=== PATIENT | male | born 1960 | race Caucasian/White ===

== ENCOUNTER 2021-07-30 20:24 | Inpatient (IN) | payer SELFPAY ==
[2021-07-30] VITALS (11 sets, daily range): BP systolic 146–200; BP diastolic 80–124; PULSE 90–118; RESP 16–37; O2SAT 94–97; BMI 24.5
--- NOTE | 2021-07-30 20:27 | ED.SEIZURE ---
HPI - Seizure General Chief Complaint: Seizure Stated Complaint: Seizure Time Seen by Provider: 07/30/21 20:27 History of Present Illness HPI Narrative: 60M daily smoker with history of extensive alcohol abuse presents by EMS for evaluation of a partially witnessed seizure just prior to arrival. The patient does have a history of seizures but does not take any medications. He is a poor historian and is unclear what prior seizures were thought to be related to though he does admit to prior episodes of alcohol withdrawal and questions whether not they may be related. He denies any recent head injuries, neck pain or fever. He has had no chest pain or shortness of breath. He was in his car waiting for his to get groceries when a passerby saw him shaking. The duration is unclear but by the time EMS arrived he had stopped and was postictal, by his arrival to the department he was alert and oriented. He does state that over the past few days he has decreased his rate of drinking because he can not afford to keep up with it. His last drink was this morning and he states that he would have absolutely had more drinks by this part of the day if he could get his hands on some alcohol. He feels a bit shaky and tremulous. He denies any headache or blurred vision. He has no chest pain or shortness of breath. He denies any abdominal pain, nausea or vomiting. He is minimally sweaty. He denies any auditory, visual or tactile hallucinations. Related Data Allergies Allergy/AdvReac Type Severity Reaction Status Date / Time No Known Drug Allergies Allergy Verified 07/30/21 21:22 Review of Systems Review of Systems Narrative: GENERAL: See HPI HEENT: Denies sinus pain, ear pain, sore throat, difficulty swallowing, dizziness. RESPIRATORY: Denies dyspnea, cough, wheezing, hemoptysis, sputum. CARDIOVASCULAR: Denies chest pain, palpitations, orthopnea, edema, GASTROINTESTINAL: Denies nausea, vomiting, abdominal pain, diarrhea, constipation, melena. : Denies dysuria, frequency, incontinence, hematuria, urinary retention. MUSCULOSKELETAL: denies weakness, joint pain, or bony pain SKIN: Denies rash, skin lesions, or other NEUROLOGIC: See HPI PSYCHIATRIC: No concerning psychosocial issues. 12 point review of systems is negative except for those stated above Patient History Medical History (Updated 07/31/21 @ 00:06 by Latoya Samuel MD) Alcohol withdrawal seizure Hypomagnesemia Surgical History (Updated 07/31/21 @ 00:06 by Latoya Samuel MD) History of inguinal hernia repair Family History (Updated 07/31/21 @ 00:09 by Latoya Samuel MD) Father Congestive heart failure Mother Congestive heart failure Social History Smoking Status: Current every day smoker Exam Narrative Exam Narrative: GENERAL: [60 year old patient appears stated age. Well-developed patient, in mild distress. Bit agitated and tremulous HEAD: Atraumatic. Normocephalic. EYES: Pupils equal round and reactive. Extraocular motions intact. No scleral icterus. No injection or drainage. ENT: Nose without bleeding, purulent drainage. Throat without erythema, tonsillar hypertrophy or exudate. Airway patent. NECK: Trachea midline. Non tender CARDIOVASCULAR: Tachycardic but regular rhythm without murmurs, gallops, or rubs. RESPIRATORY: Clear to auscultation. Breath sounds equal bilaterally. No wheezes, rales, or rhonchi. GASTROINTESTINAL: Abdomen soft, non-tender, nondistended. EXTREMITIES: No edema or joint tenderness. BACK: Nontender without deformity or crepitance. No flank tenderness. NEURO: AOx3. Agitated, tremulous SKIN: No rash or erythema of visible areas Initial Vital Signs Initial Vital Signs: Vital Signs Pulse Rate 96 H 07/30/21 20:35 Respiratory Rate 23 07/30/21 20:35 Pulse Oximetry 94 07/30/21 20:35 Course Orders Ordered: ED Orders 07/30/21 20:28 CT head/brain wo con Stat 07/30/21 20:29 CMP [Comprehensive Metabolic Panel] Stat Complete Blood Count AUTO DIFF Stat Ethanol (ETOH) Stat Magnesium Stat Prolactin Stat 07/30/21 21:16 COVID19 -Nasal RAPID/Pre-Proc Stat 07/30/21 21:37 Urinalysis Screen (Dip Only) Stat Urine Drug Screen, Rapid Stat Clonidine HCl (Clonidine 0.1 Mg Tablet) 0.1 mg PO Q4HR PRN PRN Reason: Alcohol Withdrawal Enoxaparin Sodium (Enoxaparin 40 Mg/0.4 Ml Syringe) 40 mg SUBCUT DAILY CHRISTOPHER Folic Acid (Folic Acid 1 Mg Tablet) 1 mg PO DAILY CHRISTOPHER Haloperidol (Haloperidol 5 Mg/Ml Vial) 5 mg IV Q1HR PRN PRN Reason: Hallucinations Sodium Chloride (Normal Saline 0.9%) 1,000 mls @ 150 mls/hr IV CONT CHRISTOPHER Last Admin: 07/30/21 21:18 Dose: 150 mls/hr Documented by: MERCEDES Dextrose/Sodium Chloride (Dextrose 5%-0.9% Ns) 1,000 mls @ 100 mls/hr IV CONT CHRISTOPHER Lorazepam (Lorazepam 1 Mg Tablet) 2 mg PO Q8HR CHRISTOPHER; Protocol Multivitamins (Multivitamin 1 Tablet) 1 tab PO DAILY CHRISTOPHER Naloxone HCl (Naloxone 0.4 Mg/Ml Vial) 0.2 mg IV Q2MIN PRN PRN Reason: Opiate Reversal Nicotine (Nicotine 14 Patch) 14 mg TOP DAILY CHRISTOPHER Thiamine HCl (Thiamine 100 Mg Tablet) 100 mg PO DAILY CHRISTOPHER Stop: 08/03/21 09:01 Discontinued Medications Clonidine HCl (Clonidine 0.1 Mg Tablet) 0.1 mg PO Q12H PRN PRN Reason: Anxiety Thiamine HCl 200 mg/ Sodium (Chloride) 102 mls @ 408 mls/hr IV NOW ONE Stop: 07/30/21 21:04 Last Infusion: 07/30/21 21:51 Dose: 0 mls/hr Documented by: Admin: 07/30/21 21:18 Dose: 408 mls/hr Documented by: MERCEDES Phenobarbital 260 mg/ Sodium (Chloride) 104 mls @ 200 mls/hr IV NOW ONE Stop: 07/30/21 22:01 Last Infusion: 07/30/21 22:42 Dose: 0 mls/hr Documented by: Admin: 07/30/21 22:08 Dose: 200 mls/hr Documented by: OTILIO Magnesium Sulfate (Magnesium Sulfate) 2 gm in 50 mls @ 25 mls/hr IV NOW ONE Stop: 07/30/21 23:40 Last Infusion: 07/31/21 00:07 Dose: 0 mls/hr Documented by: OTILIO Cosigned by: DEBRA Admin: 07/30/21 21:54 Dose: 25 mls/hr Documented by: OTILIO Cosigned by: RENEE Phenobarbital (Phenobarbital 65 Mg/Ml Vial) 260 mg IV NOW ONE Stop: 07/30/21 21:04 Last Admin: 07/30/21 21:18 Dose: 260 mg Documented by: MERCEDES Phenobarbital (Phenobarbital 65 Mg/Ml Vial) 130 mg IV NOW ONE Stop: 07/30/21 22:26 Thiamine HCl (Thiamine 100 Mg Tablet) 100 mg PO DAILY CHRISTOPHER Stop: 08/02/21 09:01 Vital Signs Vital signs: Vital Signs - 8 hr 07/30/21 20:35 07/30/21 20:37 07/30/21 20:55 Pulse Rate 96 H 94 H 97 H Respiratory Rate 23 16 19 Blood Pressure 173/106 H 160/124 H Pulse Oximetry 94 97 95 07/30/21 21:00 07/30/21 21:30 07/30/21 22:00 Pulse Rate 98 H 96 H 98 H Respiratory Rate 24 20 19 Blood Pressure 164/98 H 173/103 H Pulse Oximetry 95 95 95 07/30/21 22:12 07/30/21 22:30 07/30/21 22:31 Pulse Rate 118 H 93 H 93 H Respiratory Rate 37 H 23 23 Blood Pressure 200/111 H 158/86 H Pulse Oximetry 96 96 07/30/21 23:00 Pulse Rate 94 H Respiratory Rate 18 Blood Pressure 146/80 H Pulse Oximetry 95 MDM - Seizure Lab Data Result diagrams: 07/30/21 20:29 07/30/21 20:29 Labs: Lab Results 07/30/21 07/30/21 07/30/21 Range/Units 20:29 20:29 20:29 WBC 6.4 (4.5-11.0) X10^3/uL RBC 3.51 L (4.5-5.9) X10^6/uL Hgb 12.4 L (13.5-17.5) g/dL Hct 36.0 L (41-53) % MCV 102.7 H (80-100) fL MCH 35.4 H (26-34) PG MCHC 34.5 (30-36) % RDW 13.2 (11.6-14.8) % Plt Count 200 (150-400) X10^3/uL Neut % (Auto) 72.1 (50-75) % Lymph % (Auto) 13.0 L (25-40) % [place] % (Auto) 12.5 (3-14) % Eos % (Auto) 0.1 L (2-4) % Baso % (Auto) 2.3 H (0-2) % Neut # (Auto) 4600 (6978-7361) /uL Lymph # (Auto) 800 L (0228-6304) /uL [place] # (Auto) 800 (0-900) /uL Eos # (Auto) 0 (0-450) /uL Baso # (Auto) 100 (0-100) /uL Sodium 139 (137-145) mmol/L Potassium 3.7 (3.4-5.1) mmol/L Chloride 95 L (98-107) mmol/L Carbon Dioxide 25 (22-32) mmol/L BUN 8 L (9-20) mg/dL Creatinine 0.71 (0.66-1.25) mg/dL Estimated GFR > 60 (>60) mL/min BUN/Creatinine Ratio 11.3 (6-22) Glucose 157 H (70-100) mg/dL Calcium 9.1 (8.4-10.2) mg/dL Magnesium 1.2 L (1.6-2.3) mg/dL Total Bilirubin 1.2 (0.2-1.3) mg/dL AST 169 H (17-59) IU/L ALT 64 H (<50) IU/L Alkaline Phosphatase 88 (38-126) U/L Total Protein 8.2 (6.3-8.2) g/dL Albumin 4.8 (3.5-5.0) g/dL Globulin 3.4 (1.7-4.1) g/dL Albumin/Globulin Ratio 1.4 (1.0-2.8) Prolactin 38.6 H (3.7-17.9) ng/mL Urine Color Urine Appearance Urine pH (4.5-8.0) Ur Specific [place] (1.000-1.035) Urine Protein (Negative) Urine Glucose (UA) (Negative) g/dL Urine Ketones (NEGATIVE) Urine Occult Blood (Negative) Urine Nitrate (Negative) Urine Bilirubin (NEGATIVE) Urine Urobilinogen (0.2) E.U./dL Ur Leukocyte Esterase (NEGATIVE) U Opiates 300ng/mL cut (Negative) Ur Oxycodone Screen (Negative) Urine Methadone Screen (Negative) Ur Barbiturates Screen (Negative) U Tricyclic Antidepress (Negative) Ur Phencyclidine Scrn (Negative) Ur Amphetamines Screen (Negative) U Methamphetamines Scrn (Negative) Ur MDMA Scrn (Ecstasy) (Negative) U Benzodiazepines Scrn (Negative) Urine Cocaine Screen (Negative) U Marijuana (THC) Screen (Negative) Ethyl Alcohol < 10 ( - 10) mg/dL SARS-CoV-2 (PCR) (Negative) 07/30/21 07/30/21 07/30/21 Range/Units 21:16 21:37 21:37 WBC (4.5-11.0) X10^3/uL RBC (4.5-5.9) X10^6/uL Hgb (13.5-17.5) g/dL Hct (41-53) % MCV (80-100) fL MCH (26-34) PG MCHC (30-36) % RDW (11.6-14.8) % Plt Count (150-400) X10^3/uL Neut % (Auto) (50-75) % Lymph % (Auto) (25-40) % [place] % (Auto) (3-14) % Eos % (Auto) (2-4) % Baso % (Auto) (0-2) % Neut # (Auto) (3355-0312) /uL Lymph # (Auto) (8227-4797) /uL [place] # (Auto) (0-900) /uL Eos # (Auto) (0-450) /uL Baso # (Auto) (0-100) /uL Sodium (137-145) mmol/L Potassium (3.4-5.1) mmol/L Chloride (98-107) mmol/L Carbon Dioxide (22-32) mmol/L BUN (9-20) mg/dL Creatinine (0.66-1.25) mg/dL Estimated GFR (>60) mL/min BUN/Creatinine Ratio (6-22) Glucose (70-100) mg/dL Calcium (8.4-10.2) mg/dL Magnesium (1.6-2.3) mg/dL Total Bilirubin (0.2-1.3) mg/dL AST (17-59) IU/L ALT (<50) IU/L Alkaline Phosphatase (38-126) U/L Total Protein (6.3-8.2) g/dL Albumin (3.5-5.0) g/dL Globulin (1.7-4.1) g/dL Albumin/Globulin Ratio (1.0-2.8) Prolactin (3.7-17.9) ng/mL Urine Color Yellow Urine Appearance Clear Urine pH 7.5 (4.5-8.0) Ur Specific [place] 1.015 (1.000-1.035) Urine Protein 1+ H (Negative) Urine Glucose (UA) Negative (Negative) g/dL Urine Ketones 1+ H (NEGATIVE) Urine Occult Blood Trace-intact (Negative) Urine Nitrate Negative (Negative) Urine Bilirubin Negative (NEGATIVE) Urine Urobilinogen 0.2 (0.2) E.U./dL Ur Leukocyte Esterase Negative (NEGATIVE) U Opiates 300ng/mL cut Negative (Negative) Ur Oxycodone Screen Negative (Negative) Urine Methadone Screen Negative (Negative) Ur Barbiturates Screen Negative (Negative) U Tricyclic Antidepress Negative (Negative) Ur Phencyclidine Scrn Negative (Negative) Ur Amphetamines Screen Negative (Negative) U Methamphetamines Scrn Negative (Negative) Ur MDMA Scrn (Ecstasy) Negative (Negative) U Benzodiazepines Scrn Negative (Negative) Urine Cocaine Screen Negative (Negative) U Marijuana (THC) Screen Negative (Negative) Ethyl Alcohol ( - 10) mg/dL SARS-CoV-2 (PCR) Negative (Negative) Discharge Plan Departure Patient Disposition: Admitted As Inpatient Clinical Impression: Alcohol withdrawal seizure, Hypomagnesemia Admit Date/Time: 07/30/21 23:17 Admit Provider: Latoya Samuel
--- NOTE | 2021-07-30 20:28 | DI.CT.S_ITS ---
PROCEDURE: CT HEAD/BRAIN WO CON INDICATIONS: change in seizure TECHNIQUE: Noncontrast 4.5 mm thick angled axial sections acquired from the foramen magnum to the vertex, with coronal and sagittal reformats. For radiation dose reduction, the following was used: automated exposure control, adjustment of mA and/or kV according to patient size. COMPARISON: None. FINDINGS: Image quality: Excellent. CSF spaces: Basal cisterns are patent. No extra-axial fluid collections. The ventricles are symmetric in size and shape. Brain: No intracranial bleeds or masses. There is cerebral volume loss for age, with resultant ventricular and sulcal prominence. There are periventricular and deep white matter chronic small vessel ischemic changes. There is intracranial internal carotid artery atherosclerosis. Skull and face: Calvarium and visualized facial bones appear intact, without suspicious lesions. Sinuses: Visualized sinuses and mastoids are clear. IMPRESSION: No CT evidence of acute intracranial process. Dictated by: Marissa Pearson M.D. on 07/30/2021 at 21:10 Approved by: Marissa Pearson M.D. on 07/30/2021 at 21:11
[2021-07-30 20:44] LABS: Add Manual Diff / Slide Review NO; Basophils Absolute Auto 100 /uL (0-100); Basophils Percent Auto 2.3 % (0-2); Eosinophils Absolute Auto 0 /uL (0-450); Eosinophils Percent Auto 0.1 % (2-4); Hemoglobin 12.4 g/dL (13.5-17.5); Lymphocytes Absolute Auto 800 /uL (1100-4500); Mean Corpuscular HGB Conc 34.5 % (30-36); Mean Corpuscular Hemoglobin 35.4 PG (26-34); Mean Corpuscular Volume 102.7 fL (80-100); Monocytes Absolute Auto 800 /uL (0-900); Monocytes Percent Auto 12.5 % (3-14); Neutrophils Absolute Auto 4600 /uL (1500-7000); Neutrophils Percent Auto 72.1 % (50-75); Platelet Count 200 X10^3/uL (150-400); Red Blood Cell Count 3.51 X10^6/uL (4.5-5.9); Red Cell Distribution Width 13.2 % (11.6-14.8); White Blood Cell Count 6.4 X10^3/uL (4.5-11.0)
[2021-07-30 20:56] LABS: Albumin 4.8 g/dL (3.5-5.0); Albumin Globulin Ratio 1.4 (1.0-2.8); Alkaline Phosphatase 88 U/L (38-126); Aspartate Aminotransferase 169 IU/L (17-59); BUN Creatinine Ratio 11.3 (6-22); Bilirubin Total 1.2 mg/dL (0.2-1.3); Blood Urea Nitrogen 8 mg/dL (9-20); Calcium 9.1 mg/dL (8.4-10.2); Carbon Dioxide 25 mmol/L (22-32); Chloride 95 mmol/L (98-107); Estimated Glomerular Filt Rate > 60 mL/min (>60); Globulin 3.4 g/dL (1.7-4.1); Glucose 157 mg/dL (70-100); HEMOLYSIS < 15 (0-50); Magnesium 1.2 mg/dL (1.6-2.3); Potassium 3.7 mmol/L (3.4-5.1); Sodium 139 mmol/L (137-145); Total Protein 8.2 g/dL (6.3-8.2)
[2021-07-30 21:03] LABS: Alanine Aminotransferase 64 IU/L (<50)
[2021-07-30 21:13] LABS: Prolactin 38.6 ng/mL (3.7-17.9)
[2021-07-30] MEDS: THIAMINE 200 MG in SODIUM CHLORIDE 0.9% 100 ML 408 ML IV (21:18)
[2021-07-30] MEDS: SODIUM CHLORIDE 0.9% 1,000 ML 150 ML IV (21:18)
[2021-07-30] MEDS: PHENobarbital 65 MG/ML VIAL 260 MG IV (21:18)
[2021-07-30 21:22] LABS: Ethanol (ETOH) < 10 mg/dL
[2021-07-30 21:43] LABS: COVID19 -Nasal RAPID Negative (Negative)
[2021-07-30 21:48] LABS: UR Morphine/Opiate cutoff 300 Negative (Negative); Ur Creatinine Normal (Normal); Ur Specific Gravity Normal (Normal); Urine Amphetamines Negative (Negative); Urine Barbiturates Negative (Negative); Urine Benzodiazepines Negative (Negative); Urine Cocaine Negative (Negative); Urine MDMA Negative (Negative); Urine Methadone Negative (Negative); Urine Methamphetamines Negative (Negative); Urine Oxycodone Negative (Negative); Urine Phencyclidine Negative (Negative); Urine Tetrahydrocannabinol Negative (Negative); Urine Tricyclic Antidepressant Negative (Negative); Urine pH Normal (Normal)
[2021-07-30 21:53] LABS: Appearance Urine UA CLEAR; Bilirubin Urine UA NEGATIVE (NEGATIVE); Color Urine UA YELLOW; Glucose Urine UA NEGATIVE (Negative); Ketones Urine UA 1+ (NEGATIVE); Leukocyte Esterase Urine UA NEGATIVE (NEGATIVE); Nitrite Urine UA NEGATIVE (Negative); Occult Blood Urine UA TRACE-INTACT (Negative); Protein Urine UA 1+ (Negative); Specific Gravity Urine UA 1.015 (1.000-1.035); Urobilinogen Urine UA 0.2 E.U./dL (0.2); pH Urine UA 7.5 (4.5-8.0)
[2021-07-30] MEDS: MAGNESIUM SULFATE 2 GM/50 ML PIGGYBACK IV (21:54)
[2021-07-30] MEDS: SODIUM CHLORIDE 0.9% IV (22:08)
[2021-07-30] MEDS: PHENOBARBITAL IV (22:08)
--- NOTE | 2021-07-30 23:58 | P.HP_ITS ---
History of Present Illness History of Present Illness Date Patient Seen: 07/30/21 Time Patient Seen: 23:58 Chief complaint: Seizure Narrative: This is a 60 year old male with Alcoholism who presented in delirium tremens with acute withdrawal symptoms after stopping his 1-2 pint per day of Alcohol 2 days ago. He has never gone through withdrawal before. He is recently unemployed and has been unable to afford to buy alcohol. He has not had seizures. His prolactin level is 30.6. He has no primary care physician. 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 His magnesium level is 1.2. His is his backup decision maker. Patient History Medical History (Updated 07/31/21 @ 00:06 by Latoya Samuel MD) Alcohol withdrawal seizure Hypomagnesemia Surgical History (Updated 07/31/21 @ 00:06 by Latoya Samuel MD) History of inguinal hernia repair Family & Social History Family History (Updated 07/31/21 @ 00:09 by Latoya Samuel MD) Father Congestive heart failure Mother Congestive heart failure Safety & Behavioral: Feels Safe in Current Yes Environment Been Physically Hurt or No Threatened By a Person Tobacco & Substance use: Smoking Status Current every day smoker alcohol intake frequency 3 or more drinks per day Substance Use Type does not use Comment: His back up decision maker is his Mary Rich. Meds Home Medications and Allergies Allergies Allergy/AdvReac Type Severity Reaction Status Date / Time No Known Drug Allergies Allergy Verified 07/30/21 21:22 Review of Systems Review of Systems Narrative: Positive for confusion, tremor, delirium. Negative for fevers, chills, sweats, coughing, chest pain, abdominal pain, nausea, vomiting, diarrhea, dysuria, bleeding, rashes, seizures. Exam Vital Signs (past 8 hours): - 07/30/21 20:35 07/30/21 20:37 07/30/21 20:55 Pulse Rate 96 H 94 H 97 H Respiratory Rate 23 16 19 Blood Pressure 173/106 H 160/124 H Pulse Oximetry 94 97 95 07/30/21 21:00 07/30/21 21:30 07/30/21 22:00 Pulse Rate 98 H 96 H 98 H Respiratory Rate 24 20 19 Blood Pressure 164/98 H 173/103 H Pulse Oximetry 95 95 95 07/30/21 22:12 07/30/21 22:30 07/30/21 22:31 Pulse Rate 118 H 93 H 93 H Respiratory Rate 37 H 23 23 Blood Pressure 200/111 H 158/86 H Pulse Oximetry 96 96 07/30/21 23:00 Pulse Rate 94 H Respiratory Rate 18 Blood Pressure 146/80 H Pulse Oximetry 95 Oxygen Delivery Method Room Air Narrative Exam Narrative: He is alert and oriented x3. He is in no apparent distress, having recently received a double dose of phenobarbital. His however is in some distress as she is having to sleep on a blanket on the hard floor next to his bed. His face is red and Pupils are equally round reactive to light and accommodation. Extraocular muscles are intact. Sclerae are pink and nonicteric Throat looks normal No lymph nodes are felt head, neck, supraclavicular area There is no thyromegaly JVD is less than 6 cm Heart is regular rate and rhythm without murmur Lungs are clear to auscultation bilaterally Abdomen is soft, bowel sounds positive, nontender, obese. Extremities no ankle edema Skin has no rash or jaundice. Neuro exam: No asterixis No tremor (he recently received phenobarbital) Cranial nerves 2-12 test intact Motor function is 4/5 throughout Deep tendon reflexes are symmetric. Gait and balance are not tested. Objective Labs Result Diagrams: 07/30/21 20:29 07/30/21 20:29 Labs: Laboratory Results - last 24 hr 07/30/21 07/30/21 07/30/21 20:29 20:29 20:29 WBC 6.4 RBC 3.51 L Hgb 12.4 L Hct 36.0 L MCV 102.7 H MCH 35.4 H MCHC 34.5 RDW 13.2 Plt Count 200 Neut % (Auto) 72.1 Lymph % (Auto) 13.0 L [place] % (Auto) 12.5 Eos % (Auto) 0.1 L Baso % (Auto) 2.3 H Neut # (Auto) 4600 Lymph # (Auto) 800 L [place] # (Auto) 800 Eos # (Auto) 0 Baso # (Auto) 100 Sodium 139 Potassium 3.7 Chloride 95 L Carbon Dioxide 25 BUN 8 L Creatinine 0.71 Estimated GFR > 60 BUN/Creatinine Ratio 11.3 Glucose 157 H Calcium 9.1 Magnesium 1.2 L Total Bilirubin 1.2 AST 169 H ALT 64 H Alkaline Phosphatase 88 Total Protein 8.2 Albumin 4.8 Globulin 3.4 Albumin/Globulin Ratio 1.4 Prolactin 38.6 H Urine Color Urine Appearance Urine pH Ur Specific [place] Urine Protein Urine Glucose (UA) Urine Ketones Urine Occult Blood Urine Nitrate Urine Bilirubin Urine Urobilinogen Ur Leukocyte Esterase U Opiates 300ng/mL cut Ur Oxycodone Screen Urine Methadone Screen Ur Barbiturates Screen U Tricyclic Antidepress Ur Phencyclidine Scrn Ur Amphetamines Screen U Methamphetamines Scrn Ur MDMA Scrn (Ecstasy) U Benzodiazepines Scrn Urine Cocaine Screen U Marijuana (THC) Screen Ethyl Alcohol < 10 SARS-CoV-2 (PCR) 07/30/21 07/30/21 07/30/21 21:16 21:37 21:37 WBC RBC Hgb Hct MCV MCH MCHC RDW Plt Count Neut % (Auto) Lymph % (Auto) [place] % (Auto) Eos % (Auto) Baso % (Auto) Neut # (Auto) Lymph # (Auto) [place] # (Auto) Eos # (Auto) Baso # (Auto) Sodium Potassium Chloride Carbon Dioxide BUN Creatinine Estimated GFR BUN/Creatinine Ratio Glucose Calcium Magnesium Total Bilirubin AST ALT Alkaline Phosphatase Total Protein Albumin Globulin Albumin/Globulin Ratio Prolactin Urine Color Yellow Urine Appearance Clear Urine pH 7.5 Ur Specific [place] 1.015 Urine Protein 1+ H Urine Glucose (UA) Negative Urine Ketones 1+ H Urine Occult Blood Trace-intact Urine Nitrate Negative Urine Bilirubin Negative Urine Urobilinogen 0.2 Ur Leukocyte Esterase Negative U Opiates 300ng/mL cut Negative Ur Oxycodone Screen Negative Urine Methadone Screen Negative Ur Barbiturates Screen Negative U Tricyclic Antidepress Negative Ur Phencyclidine Scrn Negative Ur Amphetamines Screen Negative U Methamphetamines Scrn Negative Ur MDMA Scrn (Ecstasy) Negative U Benzodiazepines Scrn Negative Urine Cocaine Screen Negative U Marijuana (THC) Screen Negative Ethyl Alcohol SARS-CoV-2 (PCR) Negative Assessment & Plan Assessment & Plan narrative: This is a 60 year old male with Alcoholism who presented in delirium tremens with acute withdrawal symptoms after stopping his 1-2 pint per day of Alcohol 2 days ago. Acute Alcohol Withdrawal, Present on admission. Active. -DT's resolved with Phenobarbital. -Continue routine Lorazepam, PRN Phenobarbital and PRN Haldol -Mg and Thiamine supplementation Hypomagnesemia, Present on admission. Active. -Mg 1.2, likely chronic Mg depletion of alcohol toxicity -2 gm IV in the ED, follow daily. Hyperglycemia, Present on admission. Active. -BS 157 -Follow up Glucose daily, add POCT monitoring and correctional scale if needed Lovenox for DVT prevention. Lokesh Samuel MD 07/30/21 Time Spent With Patient Critical Care time: I spent a total of [] minutes of critical care time on this patient's care today; this time is exclusive of procedural time.
[2021-07-31] VITALS (38 sets, daily range): BP systolic 104–164; BP diastolic 69–97; PULSE 67–130; RESP 14–25; TEMP 36.3–37.4; O2SAT 91–100; BMI 22.4
[2021-07-31] MEDS: DEXTROSE 5%-0.9% NS 1,000 ML 100 ML IV ×3 (01:09→22:08)
[2021-07-31] MEDS: HALOPERIDOL 5 MG/ML VIAL IV ×2 (01:10→02:19)
[2021-07-31] MEDS: cloNIDine 0.1 MG TABLET PO ×2 (02:22→09:43)
[2021-07-31] MEDS: LORazepam 2 MG/ML INJ 1 MG IV (03:53)
[2021-07-31 05:18] LABS: Add Manual Diff / Slide Review NO; Basophils Absolute Auto 100 /uL (0-100); Eosinophils Absolute Auto 0 /uL (0-450); Eosinophils Percent Auto 0.4 % (2-4); Hematocrit 34.4 % (41-53); Hemoglobin 11.7 g/dL (13.5-17.5); Lymphocytes Absolute Auto 800 /uL (1100-4500); Lymphocytes Percent Auto 14.8 % (25-40); Mean Corpuscular Hemoglobin 34.7 PG (26-34); Mean Corpuscular Volume 102.2 fL (80-100); Monocytes Absolute Auto 800 /uL (0-900); Monocytes Percent Auto 14.6 % (3-14); Neutrophils Absolute Auto 4000 /uL (1500-7000); Neutrophils Percent Auto 69.2 % (50-75); Platelet Count 191 X10^3/uL (150-400); Red Blood Cell Count 3.36 X10^6/uL (4.5-5.9); White Blood Cell Count 5.7 X10^3/uL (4.5-11.0)
[2021-07-31 05:20] LABS: Alanine Aminotransferase 50 IU/L (<50); Albumin 3.9 g/dL (3.5-5.0); Albumin Globulin Ratio 1.3 (1.0-2.8); Alkaline Phosphatase 76 U/L (38-126); Aspartate Aminotransferase 134 IU/L (17-59); BUN Creatinine Ratio 11.6 (6-22); Bilirubin Total 1.2 mg/dL (0.2-1.3); Blood Urea Nitrogen 8 mg/dL (9-20); Calcium 8.5 mg/dL (8.4-10.2); Carbon Dioxide 30 mmol/L (22-32); Chloride 97 mmol/L (98-107); Estimated Glomerular Filt Rate > 60 mL/min (>60); Glucose 101 mg/dL (70-100); HEMOLYSIS < 15 (0-50); Potassium 3.1 mmol/L (3.4-5.1); Sodium 137 mmol/L (137-145); Total Protein 6.9 g/dL (6.3-8.2)
[2021-07-31 05:35] LABS: Prolactin 35.4 ng/mL (3.7-17.9)
[2021-07-31] MEDS: LORazepam 1 MG TABLET 2 MG PO ×2 (06:21→22:14)
--- NOTE | 2021-07-31 07:24 | P.PN_ITS ---
Subjective Subjective Date Patient Seen: 07/31/21 Interval history: He is seen today to follow-up his hypokalemia, hypertension and alcohol withdrawal. He is boarding in the emergency department. He appears to be more sedated by his benzodiazepines than he had been when I saw him last. His is no longer lying on the floor next to his bed. His potassium level this morning is 3.1. Exam Vital Signs (past 8 hours): - 07/30/21 23:30 07/31/21 00:00 07/31/21 00:30 Pulse Rate 90 90 109 H Respiratory Rate 18 17 24 Blood Pressure 152/88 H 132/75 Pulse Oximetry 94 92 95 07/31/21 00:31 07/31/21 01:00 07/31/21 01:30 Pulse Rate 112 H 99 H 93 H Respiratory Rate 24 25 H 18 Blood Pressure 104/83 133/76 122/71 Pulse Oximetry 92 92 92 07/31/21 02:00 07/31/21 02:09 07/31/21 02:22 Pulse Rate 130 H 105 H 97 H Respiratory Rate 23 20 Blood Pressure 133/81 133/81 Pulse Oximetry 95 91 07/31/21 02:30 07/31/21 03:00 07/31/21 03:30 Pulse Rate 93 H 82 92 H Respiratory Rate 14 16 21 Blood Pressure 140/80 123/69 Pulse Oximetry 96 07/31/21 04:00 07/31/21 04:30 07/31/21 05:00 Pulse Rate 75 85 73 Respiratory Rate 16 19 16 Blood Pressure Pulse Oximetry 96 94 95 07/31/21 05:30 07/31/21 06:00 07/31/21 06:26 Pulse Rate 73 72 113 H Respiratory Rate 17 17 Blood Pressure 161/78 H Pulse Oximetry 98 96 07/31/21 06:30 Pulse Rate 90 Respiratory Rate 16 Blood Pressure Pulse Oximetry 97 Oxygen Delivery Method Room Air Narrative Exam Narrative: He is sedated/sleeping. No apparent distress. Heart is regular rate and rhythm without murmur Lungs are clear to auscultation bilaterally Extremities have no ankle edema Objective Labs Result Diagrams: 07/31/21 04:50 07/31/21 04:50 Labs: Laboratory Results - last 24 hr 07/30/21 07/30/21 07/30/21 20:29 20:29 20:29 WBC 6.4 RBC 3.51 L Hgb 12.4 L Hct 36.0 L MCV 102.7 H MCH 35.4 H MCHC 34.5 RDW 13.2 Plt Count 200 Neut % (Auto) 72.1 Lymph % (Auto) 13.0 L [place] % (Auto) 12.5 Eos % (Auto) 0.1 L Baso % (Auto) 2.3 H Neut # (Auto) 4600 Lymph # (Auto) 800 L [place] # (Auto) 800 Eos # (Auto) 0 Baso # (Auto) 100 Sodium 139 Potassium 3.7 Chloride 95 L Carbon Dioxide 25 BUN 8 L Creatinine 0.71 Estimated GFR > 60 BUN/Creatinine Ratio 11.3 Glucose 157 H Calcium 9.1 Magnesium 1.2 L Total Bilirubin 1.2 AST 169 H ALT 64 H Alkaline Phosphatase 88 Total Protein 8.2 Albumin 4.8 Globulin 3.4 Albumin/Globulin Ratio 1.4 Prolactin 38.6 H Urine Color Urine Appearance Urine pH Ur Specific [place] Urine Protein Urine Glucose (UA) Urine Ketones Urine Occult Blood Urine Nitrate Urine Bilirubin Urine Urobilinogen Ur Leukocyte Esterase U Opiates 300ng/mL cut Ur Oxycodone Screen Urine Methadone Screen Ur Barbiturates Screen U Tricyclic Antidepress Ur Phencyclidine Scrn Ur Amphetamines Screen U Methamphetamines Scrn Ur MDMA Scrn (Ecstasy) U Benzodiazepines Scrn Urine Cocaine Screen U Marijuana (THC) Screen Ethyl Alcohol < 10 SARS-CoV-2 (PCR) 07/30/21 07/30/21 07/30/21 21:16 21:37 21:37 WBC RBC Hgb Hct MCV MCH MCHC RDW Plt Count Neut % (Auto) Lymph % (Auto) [place] % (Auto) Eos % (Auto) Baso % (Auto) Neut # (Auto) Lymph # (Auto) [place] # (Auto) Eos # (Auto) Baso # (Auto) Sodium Potassium Chloride Carbon Dioxide BUN Creatinine Estimated GFR BUN/Creatinine Ratio Glucose Calcium Magnesium Total Bilirubin AST ALT Alkaline Phosphatase Total Protein Albumin Globulin Albumin/Globulin Ratio Prolactin Urine Color Yellow Urine Appearance Clear Urine pH 7.5 Ur Specific [place] 1.015 Urine Protein 1+ H Urine Glucose (UA) Negative Urine Ketones 1+ H Urine Occult Blood Trace-intact Urine Nitrate Negative Urine Bilirubin Negative Urine Urobilinogen 0.2 Ur Leukocyte Esterase Negative U Opiates 300ng/mL cut Negative Ur Oxycodone Screen Negative Urine Methadone Screen Negative Ur Barbiturates Screen Negative U Tricyclic Antidepress Negative Ur Phencyclidine Scrn Negative Ur Amphetamines Screen Negative U Methamphetamines Scrn Negative Ur MDMA Scrn (Ecstasy) Negative U Benzodiazepines Scrn Negative Urine Cocaine Screen Negative U Marijuana (THC) Screen Negative Ethyl Alcohol SARS-CoV-2 (PCR) Negative 07/31/21 07/31/21 07/31/21 04:50 04:50 04:50 WBC 5.7 RBC 3.36 L Hgb 11.7 L Hct 34.4 L MCV 102.2 H MCH 34.7 H MCHC 34.0 RDW 13.0 Plt Count 191 Neut % (Auto) 69.2 Lymph % (Auto) 14.8 L [place] % (Auto) 14.6 H Eos % (Auto) 0.4 L Baso % (Auto) 1.0 Neut # (Auto) 4000 Lymph # (Auto) 800 L [place] # (Auto) 800 Eos # (Auto) 0 Baso # (Auto) 100 Sodium 137 Potassium 3.1 L Chloride 97 L Carbon Dioxide 30 BUN 8 L Creatinine 0.69 Estimated GFR > 60 BUN/Creatinine Ratio 11.6 Glucose 101 H Calcium 8.5 Magnesium Total Bilirubin 1.2 AST 134 H ALT 50 H Alkaline Phosphatase 76 Total Protein 6.9 Albumin 3.9 Globulin 3.0 Albumin/Globulin Ratio 1.3 Prolactin 35.4 H Urine Color Urine Appearance Urine pH Ur Specific [place] Urine Protein Urine Glucose (UA) Urine Ketones Urine Occult Blood Urine Nitrate Urine Bilirubin Urine Urobilinogen Ur Leukocyte Esterase U Opiates 300ng/mL cut Ur Oxycodone Screen Urine Methadone Screen Ur Barbiturates Screen U Tricyclic Antidepress Ur Phencyclidine Scrn Ur Amphetamines Screen U Methamphetamines Scrn Ur MDMA Scrn (Ecstasy) U Benzodiazepines Scrn Urine Cocaine Screen U Marijuana (THC) Screen Ethyl Alcohol SARS-CoV-2 (PCR) PFSH Medical History (Updated 07/31/21 @ 00:06 by Latoya Samuel MD) Alcohol withdrawal seizure Hypomagnesemia Surgical History (Updated 07/31/21 @ 00:06 by Latoya Samuel MD) History of inguinal hernia repair Family History (Updated 07/31/21 @ 00:09 by Latoya Samuel MD) Father Congestive heart failure Mother Congestive heart failure Social History household members: spouse Smoking Status: Current every day smoker Assessment & Plan Assessment & Plan narrative: This is a 60 year old male with Alcoholism who presented in delirium tremens with acute withdrawal symptoms after stopping his habitual 1-2 pint per day of Alcohol 2 days ago. Acute Alcohol Withdrawal, Present on admission.? Active. -DT's initially resolved with Phenobarbital.? -Continue routine Lorazepam, PRN Lorazepam, PRN Phenobarbital and PRN Haldol -Continue Mg and Thiamine supplementation Hypomagnesemia, Present on admission.? Active. -Mg 1.2, likely chronic Mg depletion of alcohol toxicity -2 gm IV in the ED 07/30, follow daily. -add daily 400 mg MgOxide Hypokalemia, not present on admission. Active. -potassium of 3.1 on 07/31. -40 meq of oral potassium given on 07/31, follow daily. Hyperglycemia, Present on admission.? Active. -BS 157 -Follow up Glucose daily, add POCT monitoring and correctional scale if needed Lovenox for DVT prevention. Time Spent With Patient Critical Care time: I spent a total of [] minutes of critical care time on this patient's care today; this time is exclusive of procedural time.
--- NOTE | 2021-07-31 07:48 | CM.SWNOTE ---
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 Anita standing out in the rain, smoking, stated she had driven behind the ambulance that had taken patient into the ER and had lost my car appeared off possibly intoxicated. Alerted security who had intended to assist spouse JOVANY
[2021-07-31] MEDS: NICOTINE 14 PATCH 14 MG TOP (09:41)
[2021-07-31] MEDS: ENOXAPARIN 40 MG/0.4 ML SYRINGE SUBCUT (09:41)
[2021-07-31] MEDS: POTASSIUM CHLORIDE 20 MEQ TAB 40 MEQ PO (09:42)
[2021-07-31] MEDS: FOLIC ACID 1 MG TABLET PO (09:42)
[2021-07-31] MEDS: MULTIVITAMIN 1 TABLET 1 TAB PO (09:43)
[2021-07-31] MEDS: THIAMINE 100 MG TABLET PO (09:43)
--- NOTE | 2021-07-31 10:02 | PC.NURSE ---
diarrhea x 1 large loose/watery brown stool. pericare done.
--- NOTE | 2021-07-31 11:44 | CM.IDA ---
Initial DCP Assessment Note Pt is a 60 yo male, resident of [place], presents after witnessed alcohol withdrawal seizure by spouse, admitted for medical management of alcohol withdrawal PCP: None Payer: No insurance Reviewed chart, pt discussed in multidisciplinary rounds this morning. Patient expected to remain admitted for at least 48-72 hrs. Attempted assessment w/patient in ER Rm 08; patient could not be aroused. Patient soon after moved to Rm 206 Conducted assessment w/spouse Anita; introduced role. Spouse confirms both she and patient drink approx a pint per day. 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 Patient/spouse have been living off of an inheritance left by patient's late mother and spouse admits we have wasted it on booze. Spouse cannot remember the last period of sobriety either she or patient has had. Spouse admits she was seeing cats when sleeping on the floor of patient's ER room and this CONCENTRATOR OPERATOR instructed spouse Anita to present to ER registration if signs and sx of alcohol withdrawal persist or increase, Mary states understanding. Spouse unsure if patient will want to be stay sober or be agreeable to seek any outpatient DOT supports/treatment. Spouse says we will have to stop d/t limited finances. CM team will plan to follow closely as medical POC unfolds. Expect patient will return home w/spouse when medically cleared, outpatient resources can be provided if patient requests URIEL Small Discharge Planning/Care Management CM Discharge Assessment Start: 07/31/21 11:42 Freq: Status: Active Protocol: Document 07/31/21 11:42 JOVANY (Rec: 07/31/21 11:44 JOVANY [id number]) Discharge Planning Assessment Assigned [employer] URIEL Barboza DPOA/Assigned Designee Name antonio Parks Contact Information [phone] Advance Directives? No History Provided By Significant Other,Medical Record Prior Living Arrangements House Household Members spouse Type of transportation used prior to Drives own vehicle admit Independent with ADL's Yes Is patient alert and oriented? Yes Barriers to Discharge No Comment Upon medical clearance, it's expected patient will return home w/outpatient DOT resources if requested Discharge Plan Home Transportation Arrangement Spouse (?) Referrals Initiated None needed
[2021-07-31] MEDS: LORazepam 2 MG/ML INJ IV ×2 (14:45→20:14)
[2021-07-31] MEDS: MAGNESIUM OXIDE 400 MG TABLET PO (17:20)
[2021-08-01] VITALS (9 sets, daily range): BP systolic 121–165; BP diastolic 84–98; PULSE 75–121; RESP 14–20; TEMP 36.2–38.1; O2SAT 94–100
[2021-08-01] MEDS: LORazepam 2 MG/ML INJ IV ×2 (03:24→23:16)
[2021-08-01 06:42] LABS: BUN Creatinine Ratio 11.1 (6-22); Blood Urea Nitrogen 6 mg/dL (9-20); Calcium 8.2 mg/dL (8.4-10.2); Carbon Dioxide 26 mmol/L (22-32); Chloride 99 mmol/L (98-107); Estimated Glomerular Filt Rate > 60 mL/min (>60); Glucose 111 mg/dL (70-100); HEMOLYSIS < 15 (0-50); Sodium 136 mmol/L (137-145)
[2021-08-01 06:43] LABS: Magnesium 1.4 mg/dL (1.6-2.3)
[2021-08-01] MEDS: DEXTROSE 5%-0.9% NS 1,000 ML 100 ML IV (08:12)
[2021-08-01] MEDS: MAGNESIUM SULFATE 4 GM/100 ML PIGGYBACK IV (08:42)
[2021-08-01] MEDS: FOLIC ACID 1 MG TABLET PO (10:06)
[2021-08-01] MEDS: MULTIVITAMIN 1 TABLET 1 TAB PO (10:06)
[2021-08-01] MEDS: POTASSIUM CHLORIDE 20 MEQ TAB 40 MEQ PO ×3 (10:06→15:35)
[2021-08-01] MEDS: ENOXAPARIN 40 MG/0.4 ML SYRINGE SUBCUT (10:07)
[2021-08-01] MEDS: THIAMINE 100 MG TABLET PO (10:07)
[2021-08-01] MEDS: MAGNESIUM OXIDE 400 MG TABLET PO (10:07)
--- NOTE | 2021-08-01 11:51 | CM.DPC ---
DCP Cont: Per MD, pt still in ETOH withdrawal and not medically stable to d/c yet today and SW attempted to meet bedside with pt but he does not seem quite medically appropriate to participate in meaningful d/c discussion yet today and fairly tremulous and having difficulty following directives. Plan: SW to follow maybe later today vs tomorrow for discharge discussion with pt regarding his ETOH abuse and if interested in any ETOH resources/tx at discharge and could likely benefit from PT eval prior to d/c as pt quite weak and tremulous with withdrawal. Chata Be MSW
--- NOTE | 2021-08-01 13:48 | PT.IIE ---
Current Diagnoses Alcohol dependence with withdrawal delirium (07/30/21) Medical History (Last Updated 07/31/21 @ 00:06 by Latoya Samuel MD) Alcohol withdrawal seizure Hypomagnesemia Physical Therapy Inpatient Evaluation/Re-Eval M1 PT/OT-IP Prior Functional Status Start: 08/01/21 12:39 Freq: NEEDED Status: Active Protocol: Document 08/01/21 13:48 AW (Rec: 08/01/21 14:18 AW [id number]) Medical Review Prior Functional Status Medical History Reviewed Yes Communication Pt is able to make his needs known Mobility and Gait Pt reports independent mobility at baseline. He notes chronic right ankle instability, recent right knee injury, and right shoulder arthritis. Activities of Daily Living and IADL's Indpenendent per patient report Social History Household Members spouse Living Arrangements House Number of Floors (Floors) One Floor Number of Stairs To Enter/Railing? 2 THOMAS at back door which is typical entrance. There is a rail on the right ascending. Home Environment High Toilet,Tub/Shower Employment Status Unemployed Additional Social History Comment Pt states he sleeps on the floor with two sleeping bags. He lives in [place] with his , Anita. M2 PT-IP Current Condition Start: 08/01/21 12:39 Freq: NEEDED Status: Active Protocol: Document 08/01/21 13:48 AW (Rec: 08/01/21 14:18 AW [id number]) Physical Therapy Current Condition Current Condition Evaluation Date 08/01/21 Treatment Diagnosis seizure, alcohol withdrawal; impaired coordination, mobility, gait Onset Date 07/30/21 M3 PT-IP Subjective Start: 08/01/21 12:39 Freq: NEEDED Status: Active Protocol: Document 08/01/21 13:48 AW (Rec: 08/01/21 14:18 AW [id number]) Subjective Physical Therapy Visit Type Type Initial Evaluation Visit Start Time 13:24 Visit Stop Time 13:48 Total Visit Minutes 24 Physical Therapy Visit Comments Patient Comments Pt is willing to participate with PT Therapy Pain Assessment Pain When Pain Assessed During Mobility Pain Present Pain Present Denied Pain M4 PT-IP Mobility and Gait Start: 08/01/21 12:39 Freq: NEEDED Status: Active Protocol: Document 08/01/21 13:48 AW (Rec: 08/01/21 14:18 AW [id number]) PT-Bed Mobility Assessment Sit to Supine Sit to Supine Minimal Assistance,1 Person Assistance PT-Transfer Assessment Sit to and From Stand Sit to and from Stand Minimal Assistance,1 Person Assistance,Use of Upper Extremities Equipment Transfer Assistive Device Gait Belt,Front Wheeled Walker Orthotic/Prosthetic Devices or Brace: No Transfers Transfer Destination Chair Transfer Technique ambulated with FWW Transfer Ability Level of Assist Minimal Assistance,Moderate Assistance,1 Person Assistance Comments Mobility Comments Pt was lying in bed as PT arrived. He agreed to get up, initially using momentum to attempt long-sitting but ultimately needing min A after rolling to his left side. He was able to don socks while sitting EOB but needed assist to recover from LOB to the right x 2. Pt stood min A and used FWW to walk toward the window before transferring to the chair min A with cues for lining up with the seat and for hand placement. Pt stood again min A and used FWW to walk a total of 30 feet in the room min/mod A with posterior and rightward LOB x 3. Pt was unaware of his LOB and made no effort to self-correct. He transferred back to the chair and was left there with call light in reach and chair alarm on. He agreed to use call light for all mobility needs. Gait Assessment Gait Gait Assistance Required: Moderate Assistance,1 Person Assist Distance (Feet) 30 Assistive Devices Assistive Device Gait Belt,Front Wheeled Walker Orthotic/Prosthetic Devices or Brace: No Gait Deviations General Gait Pattern Ataxic,Decreased Stride Length ,Decreased Feet Clearance, Lateral Trunk Lean,Wide Based Gait Factors Limiting Gait Function Factors Limiting Gait Function Decreased Sensation,Difficulty Following Directions, Incoordination,Poor Balance, Poor Safety Awareness Comments Gait Comments See mobility comments for details. Stair Climbing Assessment Comments Stair Climbing Comments Not assessed. Pt unsafe for stairs at this time. PT-Balance Assessment Sitting Balance and Reactions Static Sitting Balance Ability Fair Dynamic Sitting Balance Ability Poor Standing Balance and Reactions Static Standing Balance Ability Poor Dynamic Standing Balance Ability Poor Device Used FWW M5 PT-IP Objective Assessments Start: 08/01/21 12:39 Freq: NEEDED Status: Active Protocol: Document 08/01/21 13:48 AW (Rec: 08/01/21 14:18 AW [id number]) Orientation Orientation/Cognition Level of Alertness Alert Orientation Name,Year,Place Safety Awareness Decreased Safety Awareness Gross Range of Motion Lower Extremity ROM Assessment Within Functional Limits Strength Lower Extremity Strength Assessment Within Functional Limits Hip 4+/5 Knee 4+/5 Ankle 4/5 Coordination Assessment Gross Coordination Gross Coordination Impaired Assessment Finger to Nose Test Moderate Impairment Pronation/Supination Test Moderate Impairment Foot Tapping Test Minimal Impairment Sensation Assessment Comments Sensation Comments Difficult to assess secondary to cognitive state. Muscle Tone Muscle Tone WNL No Muscle Tone Location Bilateral Upper Extremity Severity of Tone Moderate Manifistation of Tone Resting Tremors,Intention Tremors Other Assessments Other Other Assessments Oculomotor assessment demonstrates delays with tracking and poor convergence. M6 PT-IP Treatment Start: 08/01/21 12:39 Freq: NEEDED Status: Active Protocol: Document 08/01/21 13:48 AW (Rec: 08/01/21 14:18 AW [id number]) Physical Therapy Treatment Education Education Provided Safety M7 PT-IP Assessment and Plan Start: 08/01/21 12:39 Freq: NEEDED Status: Active Protocol: Document 08/01/21 13:48 AW (Rec: 08/01/21 14:18 AW [id number]) PT Summary Assessment and Plan Potential Rehabilitation Potential Fair Status of Condition at Evaluation Evolving Summary Impairments Strength,Balance,Coordination, Sensation,Tone,Cognition,Bed Mobility,Transfers,Gait Assessment Summary Ronny is a 60 yo man admitted with recent seizure and alcohol withdrawal. He reports independent mobility at baseline without history of falls but is a difficult historian. On assessment, pt has impaired coordination and safety awareness affecting mobility, requiring mod assist for gait with FWW due to frequent loss of balance. Pt would benefit from continued acute PT to improve his mobility independence. Will continue to assess for safe discharge plan. Goals Bed Mobility Goal Independent Transfer Goal Independent,Front Wheeled Walker Gait Goal Independent,Front Wheel Walker Gait Distance 200 Other Goals - up/down 2 steps with R rail ascending SBA - improve transfers and gait to SBA no AD Days to Meet Goals 6 Frequency of Treatment Frequency Of Treatment Once a Day Treatment Plan Physical Therapy Treatment Plan Bed Mobility Training,Transfer Training,Gait Training, Therapeutic Exercise,Balance Retraining,Discharge Planning, Hot or Cold Pack,Neuromuscular Re-ed,Coordination Retraining Precautions Other Precautions seizures; falls risk Recommendations To Nursing Amount of Assist Needed 1 Person Assist Discharge Recommendations PT Discharge Recommendations Home with Assistance,Home with 24/7 Assist Available Equipment Needed for Home Before FWW if unsafe without AD Discharge Transportation Needs at Discharge Private Vehicle,Wheelchair/ Cabulance
[2021-08-01] MEDS: THIAMINE 500 MG in SODIUM CHLORIDE 0.9% 100 ML 420 ML IV ×2 (15:29→21:35)
--- NOTE | 2021-08-01 17:04 | PM.PN.1 ---
Subjective Subjective Date Patient Seen: 08/01/21 Time Patient Seen: 08:00 Interval history: Today he denies any complaints. He is slow to respond to questions. He was quite unsteady with getting up. Exam Vital Signs (past 8 hours): - 08/01/21 11:00 Temperature 97.1 F L Pulse Rate 121 H Respiratory Rate 14 Blood Pressure 133/94 H Pulse Oximetry 94 Oxygen Delivery Method Room Air Oxygen Flow Rate 0 Narrative Exam Narrative: GEN: No apparent distress.? CV: regular, tachycardic PULM: clear to auscultation bilaterally Extremities have no ankle edema NEURO: tremulous, mild Objective Labs Result Diagrams: 07/31/21 04:50 08/01/21 05:42 Labs: Laboratory Results - last 24 hr 08/01/21 08/01/21 05:42 05:42 Sodium 136 L Potassium 3.0 L Chloride 99 Carbon Dioxide 26 BUN 6 L Creatinine 0.54 L Estimated GFR > 60 BUN/Creatinine Ratio 11.1 Glucose 111 H Calcium 8.2 L Magnesium 1.4 L PFSH Medical History (Updated 07/31/21 @ 00:06 by Latoya Samuel MD) Alcohol withdrawal seizure Hypomagnesemia Surgical History (Updated 07/31/21 @ 00:06 by Latoya Samuel MD) History of inguinal hernia repair Family History (Updated 07/31/21 @ 00:09 by Latoya Samuel MD) Father Congestive heart failure Mother Congestive heart failure Social History household members: spouse Smoking Status: Current every day smoker Assessment & Plan Assessment & Plan narrative: 60 year old male with Alcoholism who presented in delirium tremens with acute withdrawal symptoms after stopping his habitual 1-2 pint per day of Alcohol 2 days ago. 1. Acute Alcohol Withdrawal -DT's initially resolved with Phenobarbital.? -Continue routine Lorazepam, PRN Lorazepam, PRN Phenobarbital and PRN Haldol -increase thiamine to IV high dose -ordered mvi, folate Hypomagnesemia, acute -Mg 1.2, likely chronic Mg depletion of alcohol toxicity -2 gm IV in the ED 07/30, follow daily. -add daily 400 mg MgOxide Hypokalemia, acute -secondary to alcohol abuse -replete aggressively and replete mag as above -recheck AM 5/2 Hyperglycemia, Present on admission.? Active. -BS 157 -Follow up Glucose daily Time Spent With Patient Critical Care time: I spent a total of [] minutes of critical care time on this patient's care today; this time is exclusive of procedural time.
--- NOTE | 2021-08-01 19:22 | DI.CT.S_ITS ---
PROCEDURE: CT HEAD/BRAIN WO CON INDICATIONS: fall, head strike TECHNIQUE: Noncontrast 4.5 mm thick angled axial sections acquired from the foramen magnum to the vertex, with coronal and sagittal reformats. For radiation dose reduction, the following was used: automated exposure control, adjustment of mA and/or kV according to patient size. COMPARISON: [facility], CT, CT HEAD/BRAIN WO CON, 07/30/2021, 20:39. FINDINGS: Image quality: Excellent. CSF spaces: Basal cisterns are patent. No extra-axial fluid collections. Ventricles are normal in size and shape. Brain: No intracranial hemorrhage, mass, or mass effect. Flores-white matter interface appears preserved. Skull and face: Calvarium and visualized facial bones are intact, without suspicious lesions. Sinuses: Visualized sinuses and mastoids are clear. IMPRESSION: 1. No acute intracranial abnormality. Dictated by: Jeremiah Bauer M.D. on 08/01/2021 at 20:10 Approved by: Jeremiah Bauer M.D. on 08/01/2021 at 20:12
[2021-08-01] MEDS: HALOPERIDOL 5 MG/ML VIAL IV (21:42)
[2021-08-01] MEDS: SODIUM CHLORIDE 0.9% FLUSH 10 ML IV (22:03)
[2021-08-01] MEDS: cloNIDine 0.1 MG TABLET PO (23:17)
[2021-08-02] VITALS (8 sets, daily range): BP systolic 143–160; BP diastolic 94–100; PULSE 71–86; RESP 16–18; TEMP 36.4–37.1; O2SAT 96–98
[2021-08-02] MEDS: LORazepam 2 MG/ML INJ IV ×3 (04:45→20:14)
[2021-08-02] MEDS: cloNIDine 0.1 MG TABLET PO ×2 (04:46→20:14)
[2021-08-02 05:24] LABS: Hematocrit 35.3 % (41-53); Hemoglobin 12.1 g/dL (13.5-17.5); Mean Corpuscular HGB Conc 34.3 % (30-36); Mean Corpuscular Hemoglobin 35.3 PG (26-34); Mean Corpuscular Volume 102.9 fL (80-100); Platelet Count 190 X10^3/uL (150-400); Red Blood Cell Count 3.43 X10^6/uL (4.5-5.9); Red Cell Distribution Width 12.9 % (11.6-14.8)
[2021-08-02 05:35] LABS: BUN Creatinine Ratio 9.7 (6-22); Blood Urea Nitrogen 7 mg/dL (9-20); Calcium 8.4 mg/dL (8.4-10.2); Carbon Dioxide 27 mmol/L (22-32); Chloride 103 mmol/L (98-107); Estimated Glomerular Filt Rate > 60 mL/min (>60); Glucose 84 mg/dL (70-100); HEMOLYSIS < 15 (0-50); Potassium 3.9 mmol/L (3.4-5.1); Sodium 137 mmol/L (137-145)
--- NOTE | 2021-08-02 05:38 | PC.NURSE ---
1914: shift change, receiving verbal report from day shift RN, heard a commotion, a crash & PBA (personal body alarm) beeping. upon arrival to room, found patient laying flat on the floor, laying in front of his closed bathroom door. His dinner tray was strewn about, the ceramic plate had shattered, and he was laying on the glass. patient reports hitting his head, points to Right parietal scalp area. no broken skin, small lump is noted. a trickle of blood is noted from the edge of right nostril, appears to be an approx 2mm superficial slit to his skin. skin cleansed to right cheek/neck & bleeding ceased. Neuros assessed, patient able to track finger, ROM WNL, REFUGIO. assessed for pain/injury. able to move all limbs w/o pain. gait belt and 2pa to sitting then to standing, patient still had non-skid socks on at time of fall. had been incont of bowel, his pullup was soiled. assisted to the BSC, then assisted to bed. seizure pads in place, bed alarm is on. VS obtained: 100.9, 109 pulse, 16 r, 97% RA, 121/84. tremulous limbs, CIWA 13. call to hospitalist to update on fall, order received: CT head/urgent r/t fall w/ head strike. call to CTsuzy came up to get patient via w/c. call to Anita, message left on cell phone to return call. 2015: callback from : update given. she mentioned: he is stubborn, just gotta make him listen. she thanked us for our wonderful care and said i know you all have your hands full w/ him. head CT negative. CIWA ranged from 7-13 thru the rest of the NOC. b/p elevated and face red/flushed, PRN lorazepam, clonidine, haldol given w/ fair effect. continues w/ extreme unsteadiness, constant attempts to self- transfer and demonstrates poor safety awareness. denies pain/headache.
[2021-08-02] MEDS: MULTIVITAMIN 1 TABLET 1 TAB PO (08:54)
[2021-08-02] MEDS: ENOXAPARIN 40 MG/0.4 ML SYRINGE SUBCUT (08:54)
[2021-08-02] MEDS: POTASSIUM CHLORIDE 20 MEQ TAB 40 MEQ PO ×3 (08:54→20:13)
[2021-08-02] MEDS: FOLIC ACID 1 MG TABLET PO (08:54)
[2021-08-02] MEDS: MAGNESIUM OXIDE 400 MG TABLET PO (08:54)
[2021-08-02] MEDS: NICOTINE 14 PATCH 14 MG TOP (08:59)
--- NOTE | 2021-08-02 10:56 | PC.NURSE ---
Addendum entered by Monet Mccarty R.N. 08/02/21 16:29: Patient ramping up and trying to get up out of the chair several times, he was also slightly agitated and anxious. 1mg of iv ativan given and helpful to patient. He is resting comfortably. Addendum entered by Monet Mccarty R.N. 08/02/21 11:16: Patient has a ciwa score of 4. Original Note: Assess- Patient just had a shower and is sitting up in the chair. He is alert and oriented x3, but delayed when asking him questions per O.T. Patient has been incontinent of urine. His feet will be cleaned and scrubbed better this afternoon. Resting comfortably in chair.
--- NOTE | 2021-08-02 11:00 | OT.IP.EVAL ---
Current Diagnoses Alcohol dependence with withdrawal delirium (07/30/21) Past Medical History (Last Updated 07/31/21 @ 00:06 by Latoya Samuel MD) Alcohol withdrawal seizure History of inguinal hernia repair Hypomagnesemia Surgical History (Last Updated 07/31/21 @ 00:06 by Latoya Samuel MD) History of inguinal hernia repair Occupational Therapy Inpatient Evaluation/Re-Eval M1 PT/OT-IP Prior Functional Status Start: 08/01/21 12:39 Freq: NEEDED Status: Active Protocol: Document 08/02/21 14:13 CGR (Rec: 08/02/21 14:26 CGR [id number]) Medical Review Prior Functional Status Medical History Reviewed Yes Communication Pt is able to make his needs known Mobility and Gait Pt reports independent mobility at baseline. He notes chronic right ankle instability, recent right knee injury, and right shoulder arthritis. Activities of Daily Living and IADL's Indpenendent per patient report Social History Household Members spouse Living Arrangements House Number of Floors (Floors) One Floor Number of Stairs To Enter/Railing? 2 THOMAS at back door which is typical entrance. There is a rail on the right ascending. Home Environment High Toilet,Tub/Shower Employment Status Unemployed Additional Social History Comment Pt states he sleeps on the floor with two sleeping bags. He lives in [place] with his , Anita. M1 PT/OT-IP Prior Functional Status Start: 08/02/21 14:12 Freq: NEEDED Status: Active Protocol: Document 08/02/21 14:13 CGR (Rec: 08/02/21 14:26 CGR [id number]) Medical Review Prior Functional Status Medical History Reviewed Yes Communication Pt is able to make his needs known Mobility and Gait Pt reports independent mobility at baseline. He notes chronic right ankle instability, recent right knee injury, and right shoulder arthritis. Activities of Daily Living and IADL's Indpenendent per patient report Social History Household Members spouse Living Arrangements House Number of Floors (Floors) One Floor Number of Stairs To Enter/Railing? 2 THOMAS at back door which is typical entrance. There is a rail on the right ascending. Home Environment High Toilet,Tub/Shower Employment Status Unemployed Additional Social History Comment Pt states he sleeps on the floor with two sleeping bags. He lives in [place] with his , Anita. M2 OT-IP Current Condition Start: 08/02/21 14:12 Freq: Status: Active Protocol: Document 08/02/21 14:13 CGR (Rec: 08/02/21 14:26 CGR [id number]) Occupational Therapy Current Condition Current Condition Evaluation Date 08/02/21 Treatment Diagnosis Alcohol withdrawl Diagnosis Onset Date 07/30/21 M3 OT- IP Subjective and Pain Start: 08/02/21 14:12 Freq: Status: Active Protocol: Document 08/02/21 14:13 CGR (Rec: 08/02/21 14:26 CGR [id number]) OT- Subjective Occupational Therapy Visit Type Type Initial Evaluation Visit Start Time 10:05 Visit Stop Time 11:00 Total Visit Minutes 55 Occupational Therapy Visit Comments Patient Comments I sweat through my sheets. OT Pain Assessment Pain When Pain Assessed At Rest Pain Present Pain Present Denied Pain M4 OT- IP ADL's Start: 08/02/21 14:12 Freq: Status: Active Protocol: Document 08/02/21 14:13 CGR (Rec: 08/02/21 14:26 CGR [id number]) OT [id number] Comments OT Self-Feeding Comments Not meal time OT ADL-Grooming General Evaluation Grooming Ability Minimal Assistance Areas Needing Assistance Combing/Brushing Hair,Face Washing Comments OT Grooming Comments Min a for brushing hair. Pt attempts but his hair is too long and gets caught in the brush. OT ADL-Oral Care General Eval Oral Care Ability Standby Assistance Areas of Assistance Brushing Teeth,Retrieving/Set- Up of Items Comments Oral Care Comments seated in chair at bedside. OT ADL-Dressing General Eval Lower Body Dressing Ability Contact Guard Assistance, Minimal Assistance Areas Needing Assistance Underpants/Brief,Socks Comments OT Dressing Comments Pt is able to don socks with max extra time but needs assist threading second foot into breifs OT ADL-Toileting Comments OT Toileting Comments not performed OT ADL-Bathing Bathing Type Bathing Type Shower General Evaluation Bathing Ability Moderate Assistance Areas Needing Assistance Retrieving/Setting Up Items, Wash/Dry Face,Wash/Dry Upper Body,Wash/Dry Back Devices Bathing Equipment Hand Held Shower Sprayer, Shower Chair with Arms,Grab Bars Comments OT Bathing Comments Pt performed shower with mod a . Pt needs vc for safety and to stay seated. M5 OT- IP IADL's Start: 08/02/21 14:12 Freq: Status: Active Protocol: Document 08/02/21 14:13 CGR (Rec: 08/02/21 14:26 CGR [id number]) OT-Instrumental Activities of Daily Living Deficits IADL Deficits Identified Deficits Home Safety Awareness Awareness of Need for Assistance at Home Decreased Awareness Ability to Problem Solve Emergency Unable to Problem Solve Situations Medication Management Medication Management Comments Pt would not be safe to perform at this time Money Management Money Management Comments Pt would not be safe to perform at this time Meal Preparation Meal Preparation Comments Pt would not be safe to perform at this time Infection Control Preventionist Infection Control Preventionist Comments Pt would not be safe to perform at this time Driving Driving Comments Pt would not be safe to perform at this time M6 OT- IP Functional Cognition Start: 08/02/21 14:12 Freq: Status: Active Protocol: Document 08/02/21 14:13 CGR (Rec: 08/02/21 14:26 CGR [id number]) Cognitive Factors Limiting Selfcare Function Cognitive Ability Level of Alertness Alert,Confusional State Patient Orientation Name,Age,Birthday,Month,Date, Year,Day of Week,Place, Situation Attention Span Ability Unable to Focus,Unable to Sustain Attention Ability to Follow Commands Able to Follow One Step Commands with Increased Time, Able to Follow One Step Commands with Repetition Cognitive Comments Cognitive Assessment Comments Pt is slow to respond and process commands. Pt may benefit from formal cog testing in 1-2 days as pt clears. OT- Vision and Hearing OT- Hearing Assessment OT- Hearing Assessment WFL OT- Vision Assessment Visual Acuity Glasses All The Time Visual Attentiveness WF Vision Assessment Comments occular pursuits are delayed M7 OT- IP Mobility and Balance Start: 08/02/21 14:12 Freq: Status: Active Protocol: Document 08/02/21 14:13 CGR (Rec: 08/02/21 14:26 CGR [id number]) OT- Bed Mobility Assessment Rolling Type of Rolling Roll to Left Level of Assistance Minimal Assistance Supine to Sit Supine to Sit Assist Minimal Assistance Scooting Scooting to Edge of Bed Minimal Assistance OT-Transfer Assessment Sit to and From Stand Sit to and from Stand Minimal Assistance Transfers Transfer Ability Minimal Assistance Technique Transfer Destination Bed,Bedside Commode,Chair, Shower Stall Transfer Technique Stand Step Pivot Devices Transfer Assistive Devices Gait Belt,Front Wheeled Walker Comments Mobility Comments Pt mobilized aorund the room. Pt has multiple LOB but appears unaware of them. Needs VC to use walker appropriately. OT- Gait Assessment Gait Gait Assistance Required: Minimum Assistance Assistive Devices Assistive Device Gait Belt,Front Wheeled Walker Comments Gait Ability Comments Pt mobilized aorund the room. Pt has multiple LOB but appears unaware of them. Needs VC to use walker appropriately. OT- Balance Assessment Sitting Balance and Reactions Static Sitting Balance Ability Fair Dynamic Sitting Balance Ability Fair Standing Balance and Reactions Static Standing Balance Ability Fair Dynamic Standing Balance Ability Poor M8 OT- IP Objective Assessments Start: 08/02/21 14:12 Freq: Status: Active Protocol: Document 08/02/21 14:13 CGR (Rec: 08/02/21 14:26 CGR [id number]) OT Gross Range of Motion Upper Extremity Range of Motion Assessment Within Functional Limits OT Strength Upper Extremity Strength Assessment Within Functional Limits Comments Strength Comments 4+/5 OT- Coordination Assessment Upper Extremity Finger to Nose Test Bilateral UE Impaired Finger Tapping Test Bilateral UE Impaired OT-Muscle Tone Assessment Muscle Tone WNL Yes OT Sensation Assessment Edema Edema Absent M9 OT- IP Assessment and Plan Start: 08/02/21 14:12 Freq: Status: Active Protocol: Document 08/02/21 14:13 CGR (Rec: 08/02/21 14:26 CGR [id number]) OT Summary Assessment and Plan Potential Rehabilitation Potential Good Analytic Complexity at Evaluation High Summary OT Impairments Balance,Coordination, Functional Cognition, Functional Mobility,Grooming, Dressing,Toileting,Bathing, Toilet Transfers,Shower Transfers,Activity Tolerance Progress Towards Goals Slow Progress due to Medical Issues,Slow Progress due to Cognition Assessment Summary Pt presents as a high complexity evaluation s/p admit for alcohol withdraw. Pt currently with LOB with all mobility requiring min a for ambulation and mod a for showering on this date. Pt will benefit from continued therapy services. Recommend SNF at this time but pt may progress over the next few days for a safe discharge home . Goals Self-Feeding Goal Independent Grooming Goal Independent Dressing Goal Independent Toileting Goal Independent Bathing Goal Independent Toilet Transfer Goal Independent Shower Transfer Goal Independent Days to Meet Goals 5 Frequency of Treatment Frequency Of Treatment Once a Day Treatment Plan OT Treatment Plan ADL Training,Functional Cognition Training,Functional Mobility,Patient/Family Education,Discharge Planning Other Treatment Recommendations and Next cog assessment, shower, ADLs Treatment Focus standing, foot care Discharge Recommendations OT Discharge Recommendations SNF Rehab Transportation Needs at Discharge Private Vehicle
[2021-08-02] MEDS: THIAMINE 500 MG in SODIUM CHLORIDE 0.9% 100 ML 420 ML IV ×3 (12:11→20:13)
--- NOTE | 2021-08-02 13:59 | CM.DPC ---
Addendum entered by URIEL Infante 08/02/21 14:42: ADD: Per OT, supported pt in showering for eval today and pt's baseline personal hygiene seems to be quite lacking as his skin condition was poor and feet were in bad shape and pt needed significant scrubbing while showering and required significant assist. Current recommendation is SNF pending progress but anticipate pt will likely improve as he is recovering from his withdrawal/detox and OT aware that pt's lack of insurance will be a barrier to SNF or HH. BF Original Note: DCP Cont: Per MD, pt may not quite be medically stable to d/c home yet today and may require further tx for withdrawal. Per RN, pt attempted to ambulate independently and not ask for assist during shift change last night and fell and hit his head. Per Admission Counselors, pt is not enrolled in health insurance and is over qualified for [employer] currently and was given a [employer] application. SW met bedside with pt and explained role and he confirms that he lives at home with his spouse in [facility] but mailing address is [place]. Pt has not spoken to his spouse since his admission that he remembers and states she is not working currently and does drive sometimes. Pt confirms that he and spouse drink together. SW inquired with pt about his interest in remaining sober now that he has been through seizure and withdrawal/detox and pt states he is interested in reducing his alcohol intake as he does not want to have to go through this experience again. Pt states he went through [facility] outpt ETOH tx in [place] about 3 years ago and felt that it helped him and changed his thinking on his drinking as well as helped him with a harm reduction plan where he did not drink as much as before, did not drink in public or drive, and only drank at home in a more controlled environment. Pt seems to be in the contemplative stage of his interest in ETOH tx again and states he would like to talk to his before deciding if he would like to return to [facility] or another outpt tx facility but currently declines Inpt ETOH tx. Pt's lack of insurance will likely be a barrier to entering ETOH tx at this time. Pt plans to call his spouse later today. Plan: SW to follow closely for pt's discussion with spouse and likely plan of d/c home in 1-2 days pending medical stability and if pt is interested in resources at d/c for ETOH support. URIEL Infante
--- NOTE | 2021-08-02 15:09 | PT.IPTN ---
Current Diagnoses Alcohol dependence with withdrawal delirium (07/30/21) Physical Therapy Treatment Note M2 PT-IP Current Condition Start: 08/01/21 12:39 Freq: NEEDED Status: Active Protocol: Document 08/01/21 13:48 AW (Rec: 08/01/21 14:18 AW [id number]) Physical Therapy Current Condition Current Condition Evaluation Date 08/01/21 Treatment Diagnosis seizure, alcohol withdrawal; impaired coordination, mobility, gait Onset Date 07/30/21 M3 PT-IP Subjective Start: 08/01/21 12:39 Freq: NEEDED Status: Active Protocol: Document 08/02/21 15:09 AW (Rec: 08/02/21 15:33 AW [id number]) Subjective Physical Therapy Visit Type Type Treatment Note Visit Start Time 14:45 Visit Stop Time 15:09 Total Visit Minutes 24 Notes Pt fell last night and hit his head. Head CT was negative. Number of BIG MACHINE CONSULTANT Visits 0 Physical Therapy Visit Comments Patient Comments I think I knocked something out in my neck when I fell last night. Patient Goals Pt wants to return home to his and pets. Therapy Pain Assessment Pain When Pain Assessed At Rest Location neck Scale Used not quantified Pain Management Techniques Distraction M4 PT-IP Mobility and Gait Start: 08/01/21 12:39 Freq: NEEDED Status: Active Protocol: Document 08/02/21 15:09 AW (Rec: 08/02/21 15:33 AW [id number]) PT-Transfer Assessment Sit to and From Stand Sit to and from Stand Contact Guard Assistance, Minimal Assistance,Use of Upper Extremities Equipment Transfer Assistive Device Gait Belt,Front Wheeled Walker Orthotic/Prosthetic Devices or Brace: No Transfers Transfer Destination Chair Transfer Technique ambulated with FWW Transfer Ability Level of Assist Minimal Assistance,1 Person Assistance Comments Mobility Comments Pt was sitting up on the chair completing paperwork when PT arrived. He agreed to get up for a walk. He stood with min A for balance support and used FWW to walk toward the door. LOB to the right x 2 within the first 15 feet, requiring min A for recovery. Pt walked the halls with poor environmental awareness, running into the left side rail, needing assist in turns, and needing cues to keep his feet inside the walker frame. He returned to the room and participated in static balance training before transferring back to the chair, needing cues to align with the chair and to keep the walker with him during the transition. PT re-attached chair alarm and left door open for ease of visibility from nurse station. Gait Assessment Gait Gait Assistance Required: Contact Guard Assist,Minimum Assistance,1 Person Assist Distance (Feet) 220 Assistive Devices Assistive Device Gait Belt,Front Wheeled Walker Orthotic/Prosthetic Devices or Brace: No Gait Deviations General Gait Pattern Ataxic,Decreased Stride Length ,Decreased Feet Clearance, Lateral Trunk Lean,Wide Based Gait Factors Limiting Gait Function Factors Limiting Gait Function Decreased Sensation,Difficulty Following Directions, Incoordination,Poor Balance, Poor Safety Awareness Comments Gait Comments See mobility comments for details. Stair Climbing Assessment Comments Stair Climbing Comments Not assessed. PT-Balance Assessment Sitting Balance and Reactions Static Sitting Balance Ability Good Dynamic Sitting Balance Ability Fair Standing Balance and Reactions Static Standing Balance Ability Poor Dynamic Standing Balance Ability Poor Device Used FWW Comments Other Balance Tests/Deviations/Treatment WBOS: EO, head turns, nods : NBOS: EO, head turns, nods Pt has (+) LOB with each trial , requiring CGA to min assist for recovery. He initiates and can maintain position ~10 seconds before losing balance posteriorly in each condition. M5 PT-IP Objective Assessments Start: 08/01/21 12:39 Freq: NEEDED Status: Active Protocol: Document 08/01/21 13:48 AW (Rec: 08/01/21 14:18 AW [id number]) Orientation Orientation/Cognition Level of Alertness Alert Orientation Name,Year,Place Safety Awareness Decreased Safety Awareness Gross Range of Motion Lower Extremity ROM Assessment Within Functional Limits Strength Lower Extremity Strength Assessment Within Functional Limits Hip 4+/5 Knee 4+/5 Ankle 4/5 Coordination Assessment Gross Coordination Gross Coordination Impaired Assessment Finger to Nose Test Moderate Impairment Pronation/Supination Test Moderate Impairment Foot Tapping Test Minimal Impairment Sensation Assessment Comments Sensation Comments Difficult to assess secondary to cognitive state. Muscle Tone Muscle Tone WNL No Muscle Tone Location Bilateral Upper Extremity Severity of Tone Moderate Manifistation of Tone Resting Tremors,Intention Tremors Other Assessments Other Other Assessments Oculomotor assessment demonstrates delays with tracking and poor convergence. M6 PT-IP Treatment Start: 08/01/21 12:39 Freq: NEEDED Status: Active Protocol: Document 08/02/21 15:09 AW (Rec: 08/02/21 15:33 AW [id number]) Physical Therapy Treatment Education Education Provided Safety Other Treatments Other Treatment Performed Continued education on safety with FWW and need for external support + physical assist to maintain balance at this time. M7 PT-IP Assessment and Plan Start: 08/01/21 12:39 Freq: NEEDED Status: Active Protocol: Document 08/02/21 15:09 AW (Rec: 08/02/21 15:33 AW [id number]) PT Summary Assessment and Plan Summary Impairments Strength,Balance,Coordination, Sensation,Tone,Cognition,Bed Mobility,Transfers,Gait Progress Towards Goals Progressing Toward Goals,Slow Progress due to Medical Issues ,Slow Progress - Other Assessment Summary Ronny progressed his gait distance with FWW today but had multiple LOB requiring min assist from PT to recover. He was able to participate in standing static balance training and was able to hold each condition ~10 seconds before losing balance ( typically posteriorly) requiring min assist for recovery. Although pt is moving more, his quality of movement is improving very slowly and pt has very little insight regarding his balance deficits. Depending on progress, may benefit from SNF rehab. Will continue to assess. Goals Bed Mobility Goal Independent Transfer Goal Independent,Front Wheeled Walker Gait Goal Independent,Front Wheel Walker Gait Distance 200 Other Goals - up/down 2 steps with R rail ascending SBA - improve transfers and gait to SBA no AD Days to Meet Goals 6 Frequency of Treatment Frequency Of Treatment Once a Day Treatment Plan Physical Therapy Treatment Plan Bed Mobility Training,Transfer Training,Gait Training, Therapeutic Exercise,Balance Retraining,Discharge Planning, Hot or Cold Pack,Neuromuscular Re-ed,Coordination Retraining Precautions Other Precautions seizures; falls risk Recommendations To Nursing Amount of Assist Needed 2 Person Assist Discharge Recommendations PT Discharge Recommendations Home with Assistance,Home with 24/ Assist Available,SNF Rehab,Home vs SNF Equipment Needed for Home Before FWW if unsafe without AD Discharge Transportation Needs at Discharge Private Vehicle,Wheelchair/ Cabulance
--- NOTE | 2021-08-02 17:10 | PM.PN.1 ---
Subjective Subjective Date Patient Seen: 08/02/21 Time Patient Seen: 08:00 Interval history: Had a fall last night and hit head. CT head showed no acute process. Exam Vital Signs (past 8 hours): - 08/02/21 16:00 08/02/21 16:10 Temperature 97.6 F Pulse Rate 78 83 Respiratory Rate 18 18 Blood Pressure 152/98 H 147/94 H Pulse Oximetry 96 Oxygen Delivery Method Room Air Oxygen Flow Rate 0 Narrative Exam Narrative: GEN: No apparent distress.? CV: regular, no murmurs PULM: clear to auscultation bilaterally Extremities have no ankle edema NEURO: tremulous, mild Objective Labs Result Diagrams: 08/02/21 04:40 08/02/21 04:40 Labs: Laboratory Results - last 24 hr 08/02/21 08/02/21 04:40 04:40 WBC 7.0 RBC 3.43 L Hgb 12.1 L Hct 35.3 L MCV 102.9 H MCH 35.3 H MCHC 34.3 RDW 12.9 Plt Count 190 Sodium 137 Potassium 3.9 Chloride 103 Carbon Dioxide 27 BUN 7 L Creatinine 0.72 Estimated GFR > 60 BUN/Creatinine Ratio 9.7 Glucose 84 Calcium 8.4 Magnesium 2.0 PFSH Medical History (Updated 07/31/21 @ 00:06 by Latoya Samuel MD) Alcohol withdrawal seizure Hypomagnesemia Surgical History (Updated 07/31/21 @ 00:06 by Latoya Samuel MD) History of inguinal hernia repair Family History (Updated 07/31/21 @ 00:09 by Latoya Samuel MD) Father Congestive heart failure Mother Congestive heart failure Social History household members: spouse Smoking Status: Current every day smoker Assessment & Plan Assessment & Plan narrative: 60 year old male with Alcoholism who presented in delirium tremens with acute withdrawal symptoms after stopping his habitual 1-2 pint per day of Alcohol 2 days ago. 1. Acute Alcohol Withdrawal -DT's initially resolved with Phenobarbital.? -Continue routine Lorazepam, PRN Lorazepam, PRN Phenobarbital and PRN Haldol -increase thiamine to IV high dose -ordered mvi, folate Hypomagnesemia, acute -Mg 1.2, likely chronic Mg depletion of alcohol toxicity -2 gm IV in the ED 07/30, follow daily. -add daily 400 mg MgOxide Hypokalemia, acute -secondary to alcohol abuse -replete aggressively and replete mag as above -recheck AM 08/02 Hyperglycemia, Present on admission.? Active. -BS 157 -Follow up Glucose daily Time Spent With Patient Critical Care time: I spent a total of [] minutes of critical care time on this patient's care today; this time is exclusive of procedural time.
--- NOTE | 2021-08-02 17:46 | PC.NURSE ---
Pt sat up in chair for majority of day. He has had several incontinent bowel movements, he has had a good appetite throughout the shift. Pt became anxious earlier and received 1 mg ativan, he is resting in bed now. Bed alarm is set.
[2021-08-02] MEDS: SODIUM CHLORIDE 0.9% FLUSH 10 ML IV (20:16)
[2021-08-03] VITALS: BP 149/95; PULSE 87; RESP 18; TEMP 36.7; O2SAT 98
--- NOTE | 2021-08-03 01:36 | PC.NURSE ---
08/03/2021 @ 0100 Patient was up in the chair and had unhooked his chair alarm and walked into the Bathroom. The RN and I heard a crash and found patient down on his knees in the bathroom with BM everywhere around the toilet. Stephie Gaming RN and my Coordinator Ladonna Meza RN came and helped me get patient up onto the BSC. I proceeded to give patient a shower and also to make sure patient was not hurt. Patient back to bed with seizure pads in place and call light in reach and bed alarm activated.
[2021-08-03 04:00] VITALS: BP 149/99; PULSE 87; RESP 18; TEMP 36.6; O2SAT 99
--- NOTE | 2021-08-03 05:50 | PC.NURSE ---
patient's mentation is improved, speech and movements are more clear today. continues to attempt to self-transfer. bed alarm on, call light w/in reach. CIWA ranging 8-5-12-5 thru the NOC. ativan given x 1, clonidine x 1. 0015: patient's bed alarm is sounding, he is attempting to get OOB i am not comfortable, i need to sit up. patient to edge of bed to dangle. states my butt hurts, i have to sit up. assisted w/ 1pa to recliner w/ small shuffling steps and FWW. PBA attached to his nightgown and tray table placed in front of him. patient thanked staff for letting me get up and watch TV. dozed off and appeared to be comfortable. call light w/in reach. PO fluids available on table. 0130: crash heard, patient found in the bathroom, had XL loose stool/incont episode. patient assessed for pain/injury. moves all extremities, assisted to standing and DIVORCE ATTORNEY gave him a shower. he tolerated this well, VS are stable. no bruising noted. denies hitting head. neuros intact. patient states: i took that thing off that you attached to my shirt, and i didn't want to bother you guys. reminded patient to call for assist before getting up. assisted back to bed, bed alarm on, call light w/in reach. hospitalist notified of above info. no new orders. 0815: call to to notify of above.
[2021-08-03 07:00] VITALS: BP 136/97; PULSE 88; RESP 19; TEMP 36.7; O2SAT 96
[2021-08-03 08:37] LABS: Hematocrit 35.6 % (41-53); Hemoglobin 12.4 g/dL (13.5-17.5); Mean Corpuscular HGB Conc 34.7 % (30-36); Mean Corpuscular Hemoglobin 35.7 PG (26-34); Mean Corpuscular Volume 102.9 fL (80-100); Platelet Count 237 X10^3/uL (150-400); Red Blood Cell Count 3.46 X10^6/uL (4.5-5.9); Red Cell Distribution Width 12.7 % (11.6-14.8)
[2021-08-03 08:53] LABS: BUN Creatinine Ratio 13.9 (6-22); Blood Urea Nitrogen 11 mg/dL (9-20); Carbon Dioxide 20 mmol/L (22-32); Chloride 102 mmol/L (98-107); Estimated Glomerular Filt Rate > 60 mL/min (>60); Glucose 86 mg/dL (70-100); HEMOLYSIS < 15 (0-50); Sodium 135 mmol/L (137-145)
[2021-08-03] MEDS: NICOTINE 14 PATCH 14 MG TOP (09:22)
[2021-08-03] MEDS: MAGNESIUM OXIDE 400 MG TABLET PO (09:23)
[2021-08-03] MEDS: MULTIVITAMIN 1 TABLET 1 TAB PO (09:23)
[2021-08-03] MEDS: FOLIC ACID 1 MG TABLET PO (09:23)
[2021-08-03] MEDS: POTASSIUM CHLORIDE 20 MEQ TAB 40 MEQ PO ×2 (09:23→11:40)
[2021-08-03] MEDS: THIAMINE 500 MG in SODIUM CHLORIDE 0.9% 100 ML 420 ML IV ×2 (09:27→15:09)
[2021-08-03] MEDS: ENOXAPARIN 40 MG/0.4 ML SYRINGE SUBCUT (09:27)
[2021-08-03] MEDS: SODIUM CHLORIDE 0.9% FLUSH 10 ML IV (09:27)
--- NOTE | 2021-08-03 10:28 | OT.IP.TRT ---
Current Diagnoses Alcohol dependence with withdrawal delirium (07/30/21) Occupational Therapy Treatment Note M2 OT-IP Current Condition Start: 08/02/21 14:12 Freq: Status: Active Protocol: Document 08/02/21 14:13 [facility] (Rec: 08/02/21 14:26 CGR [id number]) Occupational Therapy Current Condition Current Condition Evaluation Date 08/02/21 Treatment Diagnosis Alcohol withdrawl Diagnosis Onset Date 07/30/21 M3 OT- IP Subjective and Pain Start: 08/02/21 14:12 Freq: Status: Active Protocol: Document 08/03/21 10:00 [facility] (Rec: 08/03/21 13:40 [facility] [id number]) OT- Subjective Occupational Therapy Visit Type Type Treatment Note Visit Start Time 10:00 Visit Stop Time 10:28 Total Visit Minutes 28 Occupational Therapy Visit Comments Patient Comments Pt agreed to do SLUMS and get up to do grooming while up at the sink. Patient/Caregiver Goals To go home. OT Pain Assessment Pain When Pain Assessed During Mobility Pain Present Pain Present Pain Reported M4 OT- IP ADL's Start: 08/02/21 14:12 Freq: Status: Active Protocol: Document 08/03/21 10:00 [facility] (Rec: 08/03/21 13:40 [facility] [id number]) OT ADL-Grooming General Evaluation Grooming Ability Independent Areas Needing Assistance Retrieving/Set-up of Grooming Items OT ADL-Oral Care General Eval Oral Care Ability Independent Comments Oral Care Comments Pt able to do while use of his hands on the sink for occasional balance needs. OT ADL-Dressing Comments OT Dressing Comments NOt performed. OT ADL-Toileting Comments OT Toileting Comments not performed M5 OT- IP IADL's Start: 08/02/21 14:12 Freq: Status: Active Protocol: Document 08/02/21 14:13 C[facility] (Rec: 08/02/21 14:26 [facility] [id number]) OT-Instrumental Activities of Daily Living Deficits IADL Deficits Identified Deficits Home Safety Awareness Awareness of Need for Assistance at Home Decreased Awareness Ability to Problem Solve Emergency Unable to Problem Solve Situations Medication Management Medication Management Comments Pt would not be safe to perform at this time Money Management Money Management Comments Pt would not be safe to perform at this time Meal Preparation Meal Preparation Comments Pt would not be safe to perform at this time Mold Finisher Mold Finisher Comments Pt would not be safe to perform at this time Driving Driving Comments Pt would not be safe to perform at this time M6 OT- IP Functional Cognition Start: 08/02/21 14:12 Freq: Status: Active Protocol: Document 08/03/21 10:00 [facility] (Rec: 08/03/21 13:40 [facility] [id number]) Cognitive Factors Limiting Selfcare Function Cognitive Ability Level of Alertness Alert Patient Orientation Name,Age,Birthday,Month,Date, Year,Day of Week,Place, Situation Attention Span Ability Capable of Focused Attention, Capable of Sustained Attention Ability to Follow Commands Able to Follow One Step Commands Cognitive Comments Cognitive Assessment Comments Pt scored 24/30 which implies mild neurocognitive disorders. Pt able to states 11 animals in one minute, able to recall 2/5 objects after time passes, and not able to draw the hour hands correctly after time given. Pt feels that he is dong much better now. Pt admits that at home has to use a lot of post it notes to remind himself of tasks and things to remember. M7 OT- IP Mobility and Balance Start: 08/02/21 14:12 Freq: Status: Active Protocol: Document 08/03/21 10:00 [facility] (Rec: 08/03/21 13:40 [facility] [id number]) OT-Transfer Assessment Sit to and From Stand Sit to and from Stand Minimal Assistance Transfers Transfer Ability Minimal Assistance Technique Transfer Destination Bed,Chair Transfer Technique Stand Step Pivot Devices Transfer Assistive Devices Gait Belt,Front Wheeled Walker Comments Mobility Comments Pt still unsteady on his feet and having LOB several occasions and needing therapist to help with his balance at times. Pt insistent that he will be able to get a FWW for home use if going home. OT- Gait Assessment Comments Gait Ability Comments MARYCARMEN with FWW OT- Balance Assessment Sitting Balance and Reactions Static Sitting Balance Ability Good Dynamic Sitting Balance Ability Fair Standing Balance and Reactions Static Standing Balance Ability Fair Dynamic Standing Balance Ability Poor M8 OT- IP Objective Assessments Start: 08/02/21 14:12 Freq: Status: Active Protocol: Document 08/02/21 14:13 [facility] (Rec: 08/02/21 14:26 [facility] [id number]) OT Gross Range of Motion Upper Extremity Range of Motion Assessment Within Functional Limits OT Strength Upper Extremity Strength Assessment Within Functional Limits Comments Strength Comments 4+/5 OT- Coordination Assessment Upper Extremity Finger to Nose Test Bilateral UE Impaired Finger Tapping Test Bilateral UE Impaired OT-Muscle Tone Assessment Muscle Tone WNL Yes OT Sensation Assessment Edema Edema Absent M9 OT- IP Assessment and Plan Start: 08/02/21 14:12 Freq: Status: Active Protocol: Document 08/03/21 10:00 [facility] (Rec: 08/03/21 13:40 [facility] [id number]) OT Summary Assessment and Plan Potential Rehabilitation Potential Good Analytic Complexity at Evaluation High Summary OT Impairments Balance,Coordination, Functional Cognition, Functional Mobility,Grooming, Dressing,Toileting,Bathing, Toilet Transfers,Shower Transfers,Activity Tolerance Progress Towards Goals Progressing Toward Goals Assessment Summary Pt appears to be thinking better however still unsteady on his feet and a high fall risk. Pt would benefit form short skilled stay at this time. Goals Self-Feeding Goal Independent Grooming Goal Independent Dressing Goal Independent Toileting Goal Independent Bathing Goal Independent Toilet Transfer Goal Independent Shower Transfer Goal Independent Days to Meet Goals 4 Frequency of Treatment Frequency Of Treatment Once a Day Treatment Plan OT Treatment Plan ADL Training,Functional Cognition Training,Functional Mobility,Patient/Family Education,Discharge Planning Discharge Recommendations OT Discharge Recommendations SNF Rehab Other Discharge Recommendations If progressing more possibly home with 24/10 assist and home health Transportation Needs at Discharge Private Vehicle
--- NOTE | 2021-08-03 10:54 | PT.IPTN ---
Current Diagnoses Alcohol dependence with withdrawal delirium (07/30/21) Physical Therapy Treatment Note M2 PT-IP Current Condition Start: 08/01/21 12:39 Freq: NEEDED Status: Active Protocol: Document 08/01/21 13:48 [facility] (Rec: 08/01/21 14:18 AW [id number]) Physical Therapy Current Condition Current Condition Evaluation Date 08/01/21 Treatment Diagnosis seizure, alcohol withdrawal; impaired coordination, mobility, gait Onset Date 07/30/21 M3 PT-IP Subjective Start: 08/01/21 12:39 Freq: NEEDED Status: Active Protocol: Document 08/03/21 10:37 [facility] (Rec: 08/03/21 11:56 [facility] [id number]) Subjective Physical Therapy Visit Type Type Treatment Note Visit Start Time 10:37 Visit Stop Time 10:54 Total Visit Minutes 17 Number of PUBLIC RELATIONS CONSULTANT Visits 1 Physical Therapy Visit Comments Patient Comments Pt agreeable to working w/ therapy. Patient Goals Pt wants to return home to his and pets. M4 PT-IP Mobility and Gait Start: 08/01/21 12:39 Freq: NEEDED Status: Active Protocol: Document 08/03/21 10:37 [facility] (Rec: 08/03/21 11:56 [facility] [id number]) PT-Bed Mobility Assessment Scooting Scooting to Edge of Bed Standby Assistance PT-Transfer Assessment Sit to and From Stand Sit to and from Stand Contact Guard Assistance,1 Person Assistance,Use of Upper Extremities Equipment Transfer Assistive Device Gait Belt,Front Wheeled Walker Orthotic/Prosthetic Devices or Brace: No Transfers Transfer Destination Chair Transfer Technique ambulated with FWW Transfer Ability Level of Assist Contact Guard Assistance,1 Person Assistance,Use of Upper Extremities Comments Mobility Comments Pt in chair upon arrival and agreeable to ambulate. SBA for scooting to EOC and CGA for sit<>Stand w/ FWW. Pt then ambulated ~120 ft to practice stairs w/ FWW and ascended/ descended 3 steps w/ R rail and step to pattern CGA and ambulated additional ~130 ft back to room. Pt slightly unsteady w/ decreased stride and foot clearance and occasional cues for FWW use, but had no LOB throughout. Pt left in chair w/ alarm on and all needs in reach. Gait Assessment Gait Gait Assistance Required: Contact Guard Assist,1 Person Assist Distance (Feet) 250 Assistive Devices Assistive Device Gait Belt,Front Wheeled Walker Orthotic/Prosthetic Devices or Brace: No Gait Deviations General Gait Pattern Ataxic,Decreased Stride Length ,Decreased Feet Clearance, Lateral Trunk Lean,Wide Based Gait Factors Limiting Gait Function Factors Limiting Gait Function Decreased Sensation,Difficulty Following Directions, Incoordination,Poor Balance, Poor Safety Awareness Comments Gait Comments See mobility comments for details. Stair Climbing Assessment Evaluation Level of Assist On Stairs Contact Guard Assistance,1 Person Assistance Devices Stair Climbing Assistive Devices Right Railing Technique/Endurance Stair Climbing Direction Ascend and Descend Stair Climbing Technique Step to Step Number of Steps Climbed 3 Stair Climbing Set # Repetitions (reps) 1 Comments Stair Climbing Comments Pt ascended/descended 3 steps w/ steo to pattern and R rail ascending CGA. Pt states he feels he can complete steps at home. PT-Balance Assessment Sitting Balance and Reactions Static Sitting Balance Ability Good Dynamic Sitting Balance Ability Fair Standing Balance and Reactions Static Standing Balance Ability Fair Dynamic Standing Balance Ability Fair Device Used FWW M5 PT-IP Objective Assessments Start: 08/01/21 12:39 Freq: NEEDED Status: Active Protocol: Document 08/01/21 13:48 [facility] (Rec: 08/01/21 14:18 AW [id number]) Orientation Orientation/Cognition Level of Alertness Alert Orientation Name,Year,Place Safety Awareness Decreased Safety Awareness Gross Range of Motion Lower Extremity ROM Assessment Within Functional Limits Strength Lower Extremity Strength Assessment Within Functional Limits Hip 4+/5 Knee 4+/5 Ankle 4/5 Coordination Assessment Gross Coordination Gross Coordination Impaired Assessment Finger to Nose Test Moderate Impairment Pronation/Supination Test Moderate Impairment Foot Tapping Test Minimal Impairment Sensation Assessment Comments Sensation Comments Difficult to assess secondary to cognitive state. Muscle Tone Muscle Tone WNL No Muscle Tone Location Bilateral Upper Extremity Severity of Tone Moderate Manifistation of Tone Resting Tremors,Intention Tremors Other Assessments Other Other Assessments Oculomotor assessment demonstrates delays with tracking and poor convergence. M6 PT-IP Treatment Start: 08/01/21 12:39 Freq: NEEDED Status: Active Protocol: Document 08/03/21 10:37 [facility] (Rec: 08/03/21 11:56 [facility] [id number]) Physical Therapy Treatment Education Education Provided Safety Other Treatments Other Treatment Performed Continued education on safety with FWW and need for external support + physical assist to maintain balance at this time. Pt states his or brother has FWW that he can use at home. M7 PT-IP Assessment and Plan Start: 08/01/21 12:39 Freq: NEEDED Status: Active Protocol: Document 08/03/21 10:37 [facility] (Rec: 08/03/21 11:56 [facility] [id number]) PT Summary Assessment and Plan Potential Rehabilitation Potential Fair Status of Condition at Evaluation Evolving Summary Impairments Strength,Balance,Coordination, Sensation,Tone,Cognition,Bed Mobility,Transfers,Gait Progress Towards Goals Progressing Toward Goals,Slow Progress due to Medical Issues ,Slow Progress - Other Assessment Summary Pt able to ambulate 250 ft w/ FWW and ascend/descend 3 steps w/ R rail CGA and cues. No LOB, however pt does appear unsteady on feet, has decreased stride and foot clearance, and needs occasional cues for FWW use and safety. He is at risk for falling and may benefit from SNF to improve strength and functional mobility. Goals Bed Mobility Goal Independent Transfer Goal Independent,Front Wheeled Walker Gait Goal Independent,Front Wheel Walker Gait Distance 200 Other Goals - up/down 2 steps with R rail ascending SBA - improve transfers and gait to SBA no AD Days to Meet Goals 6 Frequency of Treatment Frequency Of Treatment Once a Day Treatment Plan Physical Therapy Treatment Plan Bed Mobility Training,Transfer Training,Gait Training, Therapeutic Exercise,Balance Retraining,Discharge Planning, Hot or Cold Pack,Neuromuscular Re-ed,Coordination Retraining Precautions Other Precautions seizures; falls risk Recommendations To Nursing Amount of Assist Needed 2 Person Assist Discharge Recommendations PT Discharge Recommendations Home with Assistance,Home with 24/7 Assist Available,SNF Rehab,Home vs SNF Equipment Needed for Home Before FWW if unsafe without AD Discharge Transportation Needs at Discharge Private Vehicle,Wheelchair/ Cabulance
[2021-08-03 11:00] VITALS: BP 122/88; PULSE 108; RESP 18; TEMP 36.9; O2SAT 95
--- NOTE | 2021-08-03 11:26 | P.DS_ITS ---
History of Present Illness History of Present Illness Date Patient Seen: 08/03/21 Time Patient Seen: 11:27 Chief complaint: Seizure Narrative: Per Dr. Reddy, This is a 60 year old male with Alcoholism who presented in delirium tremens with acute withdrawal symptoms after stopping his 1-2 pint per day of Alcohol 2 days ago.? He has never gone through withdrawal before.? He? is recently unemployed and has been unable to afford to buy alcohol.? He has not had seizures.? His prolactin level is 30.6.? He has no primary care physician.? 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 His magnesium level is 1.2.? His is his backup decision maker. Discharge Providers Provider Date of admission: 07/30/21 23:17 Discharge Date: 08/03/21 Consults: 07/31/21 00:03 Consult to Dietitian, Adult Routine Comment: Reason For Exam: Alcohol Withdrawal 07/31/21 12:52 Consult to Wood Boring Machine Operator Routine Comment: 08/01/21 12:04 Consult to Physical Therapy Evaluate & Treat Comment: Physician Instructions: Evaluate and Treat 08/01/21 12:05 Consult to Occupational Therapy Evaluate & Treat Comment: Physician Instructions: Evaluate and treat Discharge provider: Dimitry Lantigua DO Summary Hospital Course Discharge Diagnosis: Acute Alcohol Withdrawal with delirium tremens. Hypomagnesemia, acute Hypokalemia, acute Hyperglycemia, Present on admission.? Active. Hospital Course: This is a 60-year-old male with a past medical history of alcohol use who was admitted with delirium tremens after an attempt to stop drinking at home. His course was complicated by a fall, however there were thankfully no injuries and a CT head was negative for any bleeding. He continued to progress with physical and occupational therapies. And on the day of discharge the patient was mobilizing okay but was still recommended for rehab. His lack of insurance remained a barrier to placement. I did mobilize with him on the day of discharge and he did well, and given that he had no further symptoms of alcohol withdrawal off of Ativan for quite some time, the patient was discharged home. Time Spent with Patient Time spent: Greater than 30 minutes Exam Vital Signs (past 8 hours): - 08/03/21 04:00 08/03/21 07:00 08/03/21 10:59 Temperature 97.9 F 98.1 F 98.4 F Pulse Rate 87 88 108 H Respiratory Rate 18 19 18 Blood Pressure 149/99 H 136/97 H 122/88 Pulse Oximetry 99 96 95 Oxygen Delivery Method Room Air Oxygen Flow Rate 0 Narrative Exam Narrative: GEN: No apparent distress.? CV: regular, no murmurs PULM: clear to auscultation bilaterally Extremities have no ankle edema NEURO: Alert, oriented, no focal deficits. No tongue fasciculations or tremulousness today. Objective Labs Result Diagrams: 08/03/21 08:20 08/03/21 08:20 Labs: Laboratory Results - last 24 hr 08/03/21 08/03/21 08:20 08:20 WBC 8.0 RBC 3.46 L Hgb 12.4 L Hct 35.6 L MCV 102.9 H MCH 35.7 H MCHC 34.7 RDW 12.7 Plt Count 237 Sodium 135 L Potassium 5.0 Chloride 102 Carbon Dioxide 20 L BUN 11 Creatinine 0.79 Estimated GFR > 60 BUN/Creatinine Ratio 13.9 Glucose 86 Calcium 9.0 PFSH Medical History (Updated 07/31/21 @ 00:06 by Latoya Reddy MD) Alcohol withdrawal seizure Hypomagnesemia Surgical History (Updated 07/31/21 @ 00:06 by Latoya Reddy MD) History of inguinal hernia repair Family History (Updated 07/31/21 @ 00:09 by Latoya Reddy MD) Father Congestive heart failure Mother Congestive heart failure Social History household members: spouse Smoking Status: Current every day smoker Discharge Plan Discharge Plan Patient Disposition: Home Provider Discharge Comment: You were admitted to the hospital with alcohol withdrawal. Improved with medications to wean from alcohol. Would avoid any alcohol in the future. I recommend a multivitamin at home. Discharge orders & Medications Prescriptions: No Action No Known Home Medications 0RF Diet/Activity/Treatments Diet: Diet as Tolerated Activity: As tolerate
[2021-08-03 15:00] VITALS: BP 139/90; PULSE 101; RESP 19; TEMP 36.6; O2SAT 99
== END 2021-08-03 17:03 | disposition home or self-care (01) | DRG 897 ==
LOC: ED 21:43 → AC 23:17
PROVIDERS: Internal Medicine; Admitting Provider Family Medicine; Emergency Provider Emergency Medicine; Referring Provider Emergency Medicine; Visit Provider Family Medicine
DX: F10.231 Alcohol dependence with withdrawal delirium (principal); E83.42 Hypomagnesemia; E87.6 Hypokalemia; R73.9 Hyperglycemia, unspecified; F17.200 Nicotine dependence, unspecified, uncomplicated; W18.30XA Fall on same level, unspecified, initial encounter; Y90.0 Blood alcohol level of less than 20 mg/100 ml; Z20.822 Contact with and (suspected) exposure to COVID-19
CPT/HCPCS: 36415; 70450; 80048; 80053; 80305; 80320; 81003; 83735; 84146; 85025; 85027; 87635; 93005; 96365; 96366; 96367; 96368; 96375; 96376; 97112; 97116; 97162; 97167; 97530; 97535; 99284; C9803; J1630; J1650; J2060; J2560; J3475